=== PATIENT | female | born 1940 | race Caucasian/White ===

== ENCOUNTER → 2017-10-29 11:17 | Outpatient (CLI) | payer MEDICARE, SELFPAY ==
[2017-10-29 13:04] LABS: Alanine Aminotransferase 45 IU/L (9-52); Aspartate Aminotransferase 54 IU/L (14-36); Cholesterol 229 mg/dL (140-199); HDL Cholesterol 70 mg/dL (40-60); LDL Cholesterol Calculated 122 mg/dL (<100); Triglycerides 185 mg/dL (35-150)
== END ==
PROVIDERS: Family Provider Internal Medicine; PCP Internal Medicine; Visit Provider Internal Medicine
DX: E78.2 Mixed hyperlipidemia (principal)
CPT/HCPCS: 36415; 80061; 84450; 84460

== ENCOUNTER → 2018-03-17 09:45 | Outpatient (CLI) | payer MEDICARE, SELFPAY ==
[2018-03-17 11:28] LABS: Alanine Aminotransferase 33 IU/L (9-52); Albumin 4.6 g/dL (3.5-5.0); Albumin Globulin Ratio 1.7 (1.0-2.8); Alkaline Phosphatase 75 U/L (38-126); Aspartate Aminotransferase 37 IU/L (14-36); Bilirubin Total 0.8 mg/dL (0.2-1.3); Bilirubin Unconjugated 0.5 mg/dL (0.0-1.1); Cholesterol 235 mg/dL (140-199); Globulin 2.7 g/dL (1.7-4.1); HDL Cholesterol 62 mg/dL (40-60); HEMOLYSIS < 15 (0-50); LDL Cholesterol Calculated 119 mg/dL (<100); Total Protein 7.3 g/dL (6.3-8.2); Triglycerides 270 mg/dL (35-150)
== END ==
PROVIDERS: PCP Internal Medicine; Visit Provider Internal Medicine
DX: K75.81 Nonalcoholic steatohepatitis (NASH) (principal); E78.2 Mixed hyperlipidemia
CPT/HCPCS: 36415; 80061; 80076

== ENCOUNTER → 2018-07-04 11:53 | Outpatient (CLI) | payer MEDICARE, SELFPAY ==
--- NOTE | 2018-07-04 | DI.MG.S_ITS ---
BILATERAL DIGITAL SCREENING MAMMOGRAM 3D/2D WITH CAD: 07/04/2018 CLINICAL: Routine screening. Family history of breast cancer. Comparison is made to exams dated: 07/01/2017 mammogram, 06/14/2016 mammogram, and 06/09/2015 mammogram - [facility]. The tissue of both breasts is heterogeneously dense. This may lower the sensitivity of mammography. Current study was also evaluated with a Computer Aided Detection (CAD) system. No significant masses, calcifications, or other findings are seen in either breast. There has been no significant interval change. IMPRESSION: NEGATIVE There is no mammographic evidence of malignancy. A 1 year screening mammogram is recommended. This exam was interpreted at Station ID: [id number]. NOTE: For mammograms, a report in lay terms will be sent to the patient. Approximately 15% of breast malignancies will not be visualized mammographically. In the management of a palpable breast mass, a negative mammogram must not discourage biopsy of a clinically suspicious lesion. Electronically Signed By: Ishmael sosa/venkat:07/04/2018 16:07:36 letter sent: Normal Exam ACR BI-RADS Category 1: Negative [id number]
== END ==
PROVIDERS: Family Provider Internal Medicine; PCP Internal Medicine; Visit Provider Internal Medicine
DX: Z12.31 Encounter for screening mammogram for malignant neoplasm of breast (principal); Z80.3 Family history of malignant neoplasm of breast
CPT/HCPCS: 77063; 77067

== ENCOUNTER → 2018-08-06 12:55 | Outpatient (CLI) | payer MEDICARE, SELFPAY ==
--- NOTE | 2018-08-06 12:58 | DI.RAD.S_ITS ---
PROCEDURE: XR HIP W PEL IF DONE LT 2V INDICATIONS: hip pain after fall TECHNIQUE: AP pelvis with lateral view(s) of the left hip(s). COMPARISON: None. FINDINGS: Bones: Symmetric appearing moderate bilateral hip joint osteoarthritis is seen. No fractures or dislocations. No evidence of avascular necrosis. Pelvic ring appears intact. No suspicious bony lesions. Soft tissues: The visualized bowel gas pattern is normal. No suspicious soft tissue calcifications. IMPRESSION: Symmetric appearing moderate bilateral hip joint osteoarthritis. Dictated by: Steven Joyce M.D. on 08/06/2018 at 13:27 Approved by: Steven Joyce M.D. on 08/06/2018 at 13:27
== END ==
PROVIDERS: Family Provider Internal Medicine; PCP Internal Medicine; Visit Provider Physician Assistant
DX: M25.552 Pain in left hip (principal); M16.0 Bilateral primary osteoarthritis of hip
CPT/HCPCS: 73502

== ENCOUNTER 2018-09-02 17:52 | Emergency (ER) | payer MEDICARE, SELFPAY ==
[2018-09-02 17:56] VITALS: BP 180/92; PULSE 84; RESP 16; TEMP 37.2; O2SAT 97
--- NOTE | 2018-09-02 19:55 | DI.US.S_ITS ---
PROCEDURE: US PERIPH VENOUS LOW EXTREM LT INDICATIONS: EDEMA, PAIN TECHNIQUE: Real-time imaging, as well as color and pulse Doppler interrogation, were performed of the lower extremity deep veins from the inguinal ligament to the popliteal fossa. COMPARISON: None. FINDINGS: The common femoral, femoral and popliteal veins are normally compressible, and free of intraluminal thrombus. Color and pulse Doppler demonstrate normal phasic intraluminal flow. There is normal augmentation response to distal compression maneuver. IMPRESSION: No visualized deep venous thrombosis. Dictated by: Mandy Ortega M.D. on 09/02/2018 at 20:47 Approved by: Mandy Ortega M.D. on 09/02/2018 at 20:47
[2018-09-02 20:00] VITALS: PULSE 78
--- NOTE | 2018-09-02 20:00 | PC.NURSE ---
Long discussion w/ Thania and her . They live on [facility] and [place] not [place] the [place] ferry. They are wondering if they should stay for evaluation or go home. Discussed potential needs to complete evaluation (consulted w/ Dr. Jensen) which include Labs, US, and Provider eval. Their concern is they do not have her night time medications which are substantial & pharmacies will be closed when they leave ED. Discussed w/ Dr. Jensen. He is willing to prescribe medications x 1 dose to be given when she leaves ED. Spoke w/ Selena in pharmacy. She is aware and will dispense. and PT are agreeable to plan.
[2018-09-02 20:11] LABS: Add Manual Diff / Slide Review NO; Basophils Absolute Auto 0 /uL (0-100); Basophils Percent Auto 0.7 % (0-2); Eosinophils Absolute Auto 100 /uL (0-450); Eosinophils Percent Auto 2.1 % (2-4); Hematocrit 41.4 % (36-46); Hemoglobin 13.6 g/dL (12.0-16.0); Lymphocytes Absolute Auto 1300 /uL (1100-4500); Lymphocytes Percent Auto 24.8 % (25-40); Mean Corpuscular HGB Conc 32.9 % (30-36); Mean Corpuscular Hemoglobin 31.4 PG (26-34); Mean Corpuscular Volume 95.2 fL (80-100); Monocytes Absolute Auto 400 /uL (0-900); Monocytes Percent Auto 8.1 % (3-14); Neutrophils Absolute Auto 3400 /uL (1500-7000); Neutrophils Percent Auto 64.3 % (50-75); Platelet Count 177 X10^3/uL (150-400); Red Blood Cell Count 4.35 X10^6/uL (4.0-5.2); Red Cell Distribution Width 13.5 % (11.6-14.8); White Blood Cell Count 5.3 X10^3/uL (4.5-11.0)
[2018-09-02 20:28] LABS: Alanine Aminotransferase 30 IU/L (9-52); Albumin 4.4 g/dL (3.5-5.0); Albumin Globulin Ratio 1.5 (1.0-2.8); Alkaline Phosphatase 75 U/L (38-126); Aspartate Aminotransferase 28 IU/L (14-36); BUN Creatinine Ratio 18.8 (6-22); Bilirubin Total 0.3 mg/dL (0.2-1.3); Blood Urea Nitrogen 15 mg/dL (7-17); C-Reactive Protein Quant 0.7 mg/dL (<1.0); Calcium 9.2 mg/dL (8.4-10.2); Carbon Dioxide 25 mmol/L (22-32); Chloride 103 mmol/L (98-107); Estimated Glomerular Filt Rate > 60.0 mL/min (>60); Glucose 104 mg/dL (80-110); HEMOLYSIS < 15 (0-50); Potassium 4.1 mmol/L (3.4-5.1); Sodium 139 mmol/L (137-145); Total Protein 7.4 g/dL (6.3-8.2)
[2018-09-02 20:33] LABS: Erythrocyte Sedimentation Rate 15 MM/HR (0-20)
[2018-09-02] MEDS: LORazepam 0.5 MG TABLET 1 MG PO (20:54)
--- NOTE | 2018-09-02 20:57 | ED_ITS ---
HPI - Extremity Problem General Chief complaint: Extremity Problem,Nontraumatic Stated complaint: HEMATOMA , LEFT LOWER LEG Time Seen by Provider: 09/02/18 18:45 Source: patient and family Mode of arrival: ambulatory Limitations: no limitations History of Present Illness HPI Narrative: 77-year-old female nonsmoker with history of anxiety, hyperlipidemia presents with a painful hematoma on her left lower extremity. She suffered a mechanical fall about 10 days ago, which she attributes to ongoing arthritic hip pain. [place] forward [place] She developed a golf ball sized hematoma which is very slowly improving. She had been doing okay until she decided to mow the lawn on Saturday and in the day or 2 afterwards she developed swelling distal to the hematoma. She now has some yellowish purple swelling on the dorsum of her foot. She denies any redness, warmth or pain. She has had no systemic findings such as fever, chills nor nausea or vomiting. MD Complaint: extremity pain and extremity swelling Onset (ago): day(s) Pain Consistency: constant Location: left Quality: aching Radiation: none Relieving factors: rest Exacerbating factors: nothing Associated symptoms: denies other symptoms Related Data Home Medications Medication Instructions Recorded Confirmed paroxetine HCl [Paxil] 5 mg PO QDAY #0 06/03/10 09/02/18 quetiapine [Seroquel] 50 mg PO BID #0 04/14/16 09/02/18 [GNP ATHLETES FOOT CR] TOPICAL BIDP PRN #0 08/15/17 08/06/18 clotrimazole 1 gm TOPICAL BIDP PRN #0 08/15/17 09/02/18 gabapentin 300 mg PO DAILY #0 08/15/17 09/02/18 gabapentin [Neurontin] 1,200 cap PO BEDTIME #0 08/15/17 09/02/18 multivitamin [Multiple Vitamins] 1 tab PO QDAY #0 08/15/17 09/02/18 atorvastatin 20 mg tablet 20 mg PO BEDTIME 08/06/18 09/02/18 lorazepam 0.5 mg tablet 1 mg PO BEDTIME 08/06/18 09/02/18 omeprazole 20 mg capsule,delayed 20 mg PO DAILY 08/06/18 09/02/18 release gabapentin 200 mg PO DAILY 09/02/18 09/02/18 lorazepam 0.5 mg PO QD-BID PRN 09/02/18 09/02/18 mirtazapine 30 mg BEDTIME 09/02/18 09/02/18 zolpidem [Ambien] 10 mg PO BEDTIME 09/02/18 09/02/18 Allergies Allergy/AdvReac Type Severity Reaction Status Date / Time Sulfa (Sulfonamide Allergy Unknown Verified 08/06/18 11:41 Antibiotics) [SULFA (SULFONAMIDE ANTIBIOTICS)] Review of Systems Constitutional Denies chills, Denies fever(s), Denies lethargy and Denies weakness Eyes Denies change in vision, Denies eye discharge, Denies irritation and Denies loss of vision ENT Ears, Nose, Mouth, and Throat: Denies change in voice, Denies neck pain and Denies sore throat Cardiovascular Denies chest pain, Denies irregular heart rhythm, Denies lightheadedness, Denies palpitations, Denies dyspnea, Denies dyspnea on exertion and Denies orthopnea Respiratory Denies cough, Denies dyspnea, Denies dyspnea on exertion and Denies wheezing Gastrointestinal Gastrointestinal: Denies abdominal pain, Denies change in bowel habits, Denies diarrhea, Denies nausea and Denies vomiting Genitourinary Denies hematuria, Denies flank pain, Denies urinary incontinence and Denies urinary urgency Musculoskeletal Reports limited range of motion and Denies neck pain Integumentary/Breasts Denies pruritus, Denies erythema, Denies rash, Reports skin pain, Reports skin swelling, Reports unusual bruising and Denies wounds Neurologic Denies confusion, Denies loss of vision and Denies weakness Psychiatric Denies anxiety, Denies confusion, Denies depression, Denies homicidal ideation and Denies suicidal ideation Endocrine Denies palpitations Hematologic/Lymphatic Denies easy bruising Allergic/Immunologic Denies wheezing PFSH Medical History Insomnia (Acute) Surgical History Status post exploratory laparotomy Social History Smoking Status: Never smoker Social History Smoking Status: Never smoker Exam Narrative Exam Narrative: GEN: AOx3 and in mild distress EYES: Pupils are equal, round, and reactive to light and accommodation. Extraoccular muscles are intact bilaterally. There is no subconjunctival hemorrhage or exudate. CHEST: Lungs are clear to auscultation bilaterally and free of wheezes, rales, or rhonchi. Heart rate is regular rhythm, there are no murmurs, clicks, rubs, or gallops. There is no chest wall tenderness. ABD: Abdomen is soft and nontender. There is no guarding or rebound. Bowel sounds are normal in all 4 quadrants. There is no mass or organomegaly. EXT: Full painless ROM of all extremities with no loss of sensation or strength. 2cm healing hematoma to anterior LLE. Mild edema with yellowish/purple discoloration of some proximal toes. No erythema, warmth, or tenderness. Cap refill in tact. Sensation intact. SKIN: Warm, pink, and dry. No erythema or rash Initial Vital Signs Initial Vital Signs: Vital Signs Temperature 98.9 F 09/02/18 17:56 Pulse Rate 84 09/02/18 17:56 Respiratory Rate 16 09/02/18 17:56 Blood Pressure 180/92 H 09/02/18 17:56 Pulse Oximetry 97 09/02/18 17:56 Course Orders Ordered: ED Orders 09/02/18 19:55 US periph venous low extrem lt Stat 09/02/18 20:05 CRP [C-Reactive Protein Quant] Stat Complete Blood Count AUTO DIFF Stat Comprehensive Metabolic Panel Stat Erythrocyte Sedimentation Rate Stat Discontinued Medications Gabapentin (Neurontin) 1,200 mg PO BEDTIME JIN Last Admin: 09/02/18 21:00 Dose: 1,200 mg Lorazepam (Ativan) 1 mg PO NOW ONE Stop: 09/02/18 19:58 Last Admin: 09/02/18 20:54 Dose: 1 mg Mirtazapine (Remeron) 30 mg PO BEDTIME JIN Last Admin: 09/02/18 21:46 Dose: 30 mg Quetiapine Fumarate (Seroquel) 50 mg PO NOW ONE Stop: 09/02/18 19:58 Last Admin: 09/02/18 21:00 Dose: 50 mg Zolpidem Tartrate (Ambien) 10 mg PO BEDTIME PRN PRN Reason: Sleep Last Admin: 09/02/18 21:00 Dose: 10 mg Vital Signs - 8 hr 09/02/18 20:00 09/02/18 21:27 Pulse Rate 80 Pulse Rate [Left Dorsalis Pedis] 78 Respiratory Rate 16 Blood Pressure [Right Arm] 159/83 H Pulse Oximetry 97 MDM - Extremity (Nontraumatic) Lab Data Result diagrams: 09/02/18 20:05 09/02/18 20:05 Lab Results 09/02/18 09/02/18 Range/Units 20:05 20:05 WBC 5.3 (4.5-11.0) X10^3/uL RBC 4.35 (4.0-5.2) X10^6/uL Hgb 13.6 (12.0-16.0) g/dL Hct 41.4 (36-46) % MCV 95.2 (80-100) fL MCH 31.4 (26-34) PG MCHC 32.9 (30-36) % RDW 13.5 (11.6-14.8) % Plt Count 177 (150-400) X10^3/uL Neut % (Auto) 64.3 (50-75) % Lymph % (Auto) 24.8 L (25-40) % Labette % (Auto) 8.1 (3-14) % Eos % (Auto) 2.1 (2-4) % Baso % (Auto) 0.7 (0-2) % Neut # (Auto) 3400 (5120-3634) /uL Lymph # (Auto) 1300 (1145-2374) /uL Labette # (Auto) 400 (0-900) /uL Eos # (Auto) 100 (0-450) /uL Baso # (Auto) 0 (0-100) /uL ESR 15 (0-20) MM/HR Sodium 139 (137-145) mmol/L Potassium 4.1 (3.4-5.1) mmol/L Chloride 103 (98-107) mmol/L Carbon Dioxide 25 (22-32) mmol/L BUN 15 (7-17) mg/dL Creatinine 0.80 (0.52-1.04) mg/dL Estimated GFR > 60.0 (>60) mL/min BUN/Creatinine Ratio 18.8 (6-22) Glucose 104 (80-110) mg/dL Calcium 9.2 (8.4-10.2) mg/dL Total Bilirubin 0.3 (0.2-1.3) mg/dL AST 28 (14-36) IU/L ALT 30 (9-52) IU/L Alkaline Phosphatase 75 (38-126) U/L C-Reactive Protein 0.7 (<1.0) mg/dL Total Protein 7.4 (6.3-8.2) g/dL Albumin 4.4 (3.5-5.0) g/dL Globulin 3.0 (1.7-4.1) g/dL Albumin/Globulin Ratio 1.5 (1.0-2.8) Imaging Data Venous US: Radiologist's impression: [address] [address] Ultrasound Report Signed Patient: Thania Baptiste AMR#: [id number] : 3Acct:[id number] Age/Sex: 77 / FDate of Service: 09/02/18 Loc: ED Accession Number: [id number] Procedure: US periph venous low extrem lt Ordering Provider: German Jensen D.O. PROCEDURE: US PERIPH VENOUS LOW EXTREM LT INDICATIONS: EDEMA, PAIN TECHNIQUE: Real-time imaging, as well as color and pulse Doppler interrogation, were performed of the lower extremity deep veins from the inguinal ligament to the popliteal fossa. COMPARISON: None. FINDINGS: The common femoral, femoral and popliteal veins are normally com pressible, and free of intraluminal thrombus. Color and pulse Doppler demonstrate normal phasic intraluminal flow. There is normal augmentation response to distal compression maneuver. IMPRESSION: No visualized deep venous thrombosis. Dictated by: Mandy Ortega M.D. on 09/02/2018 at 20:47 Approved by: Mandy Ortega M.D. on 09/02/2018 at 20:47 [facility] Narrative Medical decision making narrative: Patient has a known healing hematoma from a mechanical fall. She is largely doing well until she apparently over exerted herself and has some increased swelling in the aftermath. She has no redness, warmth or tenderness. She has no systemic findings to suggest infection and normal labs. Discussed with patient and about my low suspicion for infection and that close follow-up is a better choice. They have had their questions answered to their apparent satisfaction. They have been given return precautions and have verbalized their understanding Discharge Plan Departure Patient Disposition: Home Clinical Impression: Hematoma, Edema of lower extremity Discharge Date/Time: 09/02/18 21:53 Interventions: ED Discharge Assessment Last Done: 09/02/18 21:52 Instructions: DI for Hematoma (Bruise), DI for Peripheral Edema, Unilateral Activity Restrictions/Additional Instructions: *You have been diagnosed with [ left lower extremity hematoma and edema ] *What to do: *continue to take medications as directed *Follow up with your primary care provider in 2-3 days, call for an appointment. Let them know you were seen in the Emergency Department and that we ask that you be seen in follow up *Return to ER if you should have any new, worsening or concerning symptoms *avoid overuse, or over exertion. Please elevate your leg when you can. Prescriptions: No Action lorazepam 0.5 mg tablet 1 mg PO BEDTIME RF: 0 omeprazole 20 mg capsule,delayed release(DR/EC) 20 mg PO DAILY RF: 0 atorvastatin 20 mg tablet 20 mg PO BEDTIME RF: 0 paroxetine HCl [Paxil] 10 MG tablet 5 mg PO QDAY Qty: 0 RF: 0 quetiapine [Seroquel] 50 MG tablet 50 mg PO BID Qty: 0 RF: 0 multivitamin [Multiple Vitamins] 1 EACH tablet 1 tab PO QDAY Qty: 0 RF: 0 clotrimazole 1 % cream 1 gm Topical BIDP PRN (Reason: dermatitis) Qty: 0 RF: 0 gabapentin [Neurontin] 300 MG capsule 1,200 cap PO BEDTIME Qty: 0 RF: 0 [GNP ATHLETES FOOT CR] Topical BIDP PRNQty: 0 RF: 0 gabapentin 100 MG capsule 300 mg PO DAILY Qty: 0 RF: 0 lorazepam 0.5 mg Tablet 0.5 mg PO QD-BID PRN (Reason: Anxiety) RF: 0 gabapentin 100 mg Capsule 200 mg PO DAILY RF: 0 zolpidem [Ambien] 10 mg Tablet 10 mg PO BEDTIME RF: 0 mirtazapine 30 mg tablet 30 mg BEDTIME RF: 0 Referrals: Jeison Willams MD [Primary Care Provider] -
[2018-09-02] MEDS: GABAPENTIN 600 MG TABLET 1200 MG PO (21:00)
[2018-09-02] MEDS: QUETIAPINE 25 MG TABLET 50 MG PO (21:00)
[2018-09-02] MEDS: ZOLPIDEM 5 MG TABLET 10 MG PO (21:00)
[2018-09-02 21:27] VITALS: BP 159/83; PULSE 80; RESP 16; O2SAT 97
[2018-09-02] MEDS: MIRTAZAPINE 15 MG TABLET 30 MG PO (21:46)
== END 2018-09-02 21:53 | disposition home or self-care (01) ==
PROVIDERS: Emergency Provider Emergency Medicine; Family Provider Internal Medicine; PCP Internal Medicine
DX: R60.0 Localized edema (principal); S89.92XA Unspecified injury of left lower leg, initial encounter
CPT/HCPCS: 36415; 80053; 85025; 85651; 86140; 93971; 99282; 99284

== ENCOUNTER → 2018-09-22 10:58 | Outpatient (CLI) | payer MEDICARE, SELFPAY ==
[2018-09-22 12:37] LABS: Alanine Aminotransferase 28 IU/L (9-52); Albumin 4.4 g/dL (3.5-5.0); Albumin Globulin Ratio 1.7 (1.0-2.8); Alkaline Phosphatase 77 U/L (38-126); Aspartate Aminotransferase 29 IU/L (14-36); Bilirubin Total 0.6 mg/dL (0.2-1.3); Bilirubin Unconjugated 0.5 mg/dL (0.0-1.1); Globulin 2.6 g/dL (1.7-4.1); HEMOLYSIS < 15 (0-50)
== END ==
PROVIDERS: PCP Internal Medicine; Visit Provider Internal Medicine
DX: K75.81 Nonalcoholic steatohepatitis (NASH) (principal)
CPT/HCPCS: 36415; 80076

== ENCOUNTER 2018-11-03 15:43 | Emergency (ER) | payer OTHER, MEDICARE, SELFPAY ==
[2018-11-03 15:46] VITALS: BP 140/86; PULSE 91; RESP 18; TEMP 36.8; O2SAT 96
--- NOTE | 2018-11-03 16:17 | RT ---
EKG done at [address] Pierre
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
[2018-11-03 18:46] LABS: Add Manual Diff / Slide Review NO; Basophils Absolute Auto 0 /uL (0-100); Basophils Percent Auto 0.6 % (0-2); Eosinophils Absolute Auto 100 /uL (0-450); Eosinophils Percent Auto 1.2 % (2-4); Hematocrit 40.9 % (36-46); Lymphocytes Absolute Auto 1200 /uL (1100-4500); Lymphocytes Percent Auto 23.3 % (25-40); Mean Corpuscular HGB Conc 34.2 % (30-36); Mean Corpuscular Hemoglobin 32.1 PG (26-34); Mean Corpuscular Volume 93.8 fL (80-100); Monocytes Absolute Auto 400 /uL (0-900); Neutrophils Absolute Auto 3500 /uL (1500-7000); Neutrophils Percent Auto 66.9 % (50-75); Platelet Count 146 X10^3/uL (150-400); Red Blood Cell Count 4.36 X10^6/uL (4.0-5.2); Red Cell Distribution Width 13.9 % (11.6-14.8); White Blood Cell Count 5.3 X10^3/uL (4.5-11.0)
[2018-11-03 19:00] LABS: Alanine Aminotransferase 22 IU/L (9-52); Albumin 4.1 g/dL (3.5-5.0); Albumin Globulin Ratio 1.4 (1.0-2.8); Alkaline Phosphatase 77 U/L (38-126); Aspartate Aminotransferase 31 IU/L (14-36); BUN Creatinine Ratio 18.8 (6-22); Bilirubin Total 0.4 mg/dL (0.2-1.3); Blood Urea Nitrogen 15 mg/dL (7-17); Calcium 9.4 mg/dL (8.4-10.2); Carbon Dioxide 29 mmol/L (22-32); Chloride 104 mmol/L (98-107); Creatine Kinase 83 U/L (30-135); Estimated Glomerular Filt Rate > 60.0 mL/min (>60); Glucose 80 mg/dL (80-110); HEMOLYSIS < 15 (0-50); Potassium 4.3 mmol/L (3.4-5.1); Sodium 141 mmol/L (137-145); Total Protein 7.1 g/dL (6.3-8.2)
[2018-11-03 19:12] LABS: Troponin I < 0.012 ng/mL (0.01-0.034)
== END 2018-11-03 19:41 | disposition home or self-care (01) ==
PROVIDERS: Emergency Provider Internal Medicine; PCP Internal Medicine
DX: R55 Syncope and collapse (principal); S41.101A Unspecified open wound of right upper arm, initial encounter; V48.5XXA Car driver injured in noncollision transport accident in traffic accident, initial encounter
CPT/HCPCS: 70450; 80053; 81003; 82550; 84484; 85025; 93005; 99282; 99285

== ENCOUNTER → 2019-01-15 10:51 | Outpatient (CLI) | payer MEDICARE, SELFPAY ==
[2019-01-15 11:34] LABS: Add Manual Diff / Slide Review NO; Basophils Absolute Auto 0 /uL (0-100); Basophils Percent Auto 0.5 % (0-2); Eosinophils Absolute Auto 100 /uL (0-450); Eosinophils Percent Auto 1.6 % (2-4); Hematocrit 42.7 % (36-46); Hemoglobin 14.4 g/dL (12.0-16.0); Lymphocytes Absolute Auto 1200 /uL (1100-4500); Lymphocytes Percent Auto 23.3 % (25-40); Mean Corpuscular HGB Conc 33.8 % (30-36); Mean Corpuscular Hemoglobin 31.9 PG (26-34); Mean Corpuscular Volume 94.4 fL (80-100); Monocytes Absolute Auto 500 /uL (0-900); Monocytes Percent Auto 9.4 % (3-14); Neutrophils Absolute Auto 3300 /uL (1500-7000); Neutrophils Percent Auto 65.2 % (50-75); Platelet Count 149 X10^3/uL (150-400); Red Blood Cell Count 4.52 X10^6/uL (4.0-5.2); Red Cell Distribution Width 13.7 % (11.6-14.8)
[2019-01-15 12:00] LABS: Alanine Aminotransferase 26 IU/L (9-52); Albumin 4.3 g/dL (3.5-5.0); Albumin Globulin Ratio 1.5 (1.0-2.8); Alkaline Phosphatase 100 U/L (38-126); Aspartate Aminotransferase 34 IU/L (14-36); BUN Creatinine Ratio 21.3 (6-22); Bilirubin Total 0.9 mg/dL (0.2-1.3); Blood Urea Nitrogen 17 mg/dL (7-17); Calcium 9.4 mg/dL (8.4-10.2); Carbon Dioxide 30 mmol/L (22-32); Chloride 101 mmol/L (98-107); Cholesterol 237 mg/dL (140-199); Estimated Glomerular Filt Rate > 60.0 mL/min (>60); Globulin 2.9 g/dL (1.7-4.1); Glucose 96 mg/dL (80-110); HDL Cholesterol 72 mg/dL (40-60); HEMOLYSIS < 15 (0-50); LDL Cholesterol Calculated 119 mg/dL (<100); Potassium 4.5 mmol/L (3.4-5.1); Sodium 137 mmol/L (137-145); Total Protein 7.2 g/dL (6.3-8.2); Triglycerides 230 mg/dL (35-150)
== END ==
PROVIDERS: PCP Internal Medicine; Visit Provider Internal Medicine
DX: E78.2 Mixed hyperlipidemia (principal); K75.81 Nonalcoholic steatohepatitis (NASH)
CPT/HCPCS: 36415; 80053; 80061; 85025

== ENCOUNTER 2019-03-04 07:02 | Day surgery (SDC) | payer MEDICARE, SELFPAY ==
--- NOTE | 2019-03-04 | PATH_ITS ---
[facility] Accession Number: [id number] . 01 Material submitted: . PART A: gastrointestinal site - RANDOM GASTRIC BIOPSIES PART B: gastrointestinal site - GASTRIC POLYP PART C: esophagus - ESOPHAGEAL BIOPSIES PART D: colon - ASCENDING POLYP PART E: colon - TRANSVERSE POLYPS X2 PART F: sigmoid colon - SIGMOID POLYP X2 . 02 Diagnosis: A. Stomach, Random Biopsies: Antral and body-type mucosa with no diagnostic abnormality. Negative for Helicobacter organisms by immunohistochemistry. Negative for intestinal metaplasia. Negative for dysplasia and malignancy. . B. Stomach, Polyp, Biopsy: Fundic gland polyp. No evidence of Helicobacter on H/E stain. Negative for intestinal metaplasia. Negatie for dysplasia and malignancy. . C. Esophagus, Biopsies: Squamocolumnar junctional mucosa with mild active inflammation. Negative for intestinal metaplasia. Negative for dysplasia and malignancy. . D. Ascending Colon, Polyp, Biopsy: Tubulovillous adenoma. No evidence of malignancy or high-grade dysplasia. . E. Transverse Colon, Polyps, Biopsies: Tubular adenomas. . F. Sigmoid Colon, Polyps, Biopsies: Tubular adenoma in 1 of 3 fragments. Benign lymphoid aggregate in 1 fragment. [facility] 03/06/2019 1341 Local . 02 Electronically signed: . Elba Ventura MD, Pathologist NPI- [id number] . 01 Gross description: . Part A: RANDOM GASTRIC BIOPSIES: Received in formalin are 4 fragment(s) of reyes, soft tissue measuring 0.1 x 0.1 x 0.1 cm to 0.3 x 0.2 x 0.2 cm which is entirely submitted and submitted entirely in 1 cassette(s). Part B: GASTRIC POLYP: Received in histochoice are 2 fragment(s) of reyes, soft tissue measuring 0.1 x 0.1 x 0.1 cm to 0.3 x 0.2 x 0.2 cm which is entirely submitted and submitted entirely in 1 cassette(s) Part C: ESOPHAGEAL BIOPSIES: Received in formalin are 4 fragment(s) of reyes, soft tissue measuring 0.1 x 0.1 x 0.1 cm to 0.2 x 0.1 x 0.1 cm which is entirely submitted and submitted entirely in 1 cassette(s) Part D: ASCENDING POLYP: Received in formalin are multiple fragment(s) of reyes, soft tissue measuring 0.1 x 0.1 x 0.1 cm to 0.5 x 0.5 x 0.5 cm which is entirely submitted and submitted entirely in 1 cassette(s) Part E: TRANSVERSE POLYPS X2: Received in formalin are 3 fragment(s) of reyes, soft tissue measuring 0.1 x 0.1 x 0.1 cm to 0.2 x 0.1 x 0.1 cm which is entirely submitted and submitted entirely in 1 cassette(s) Part F: SIGMOID POLYP X2: Received in formalin are 2 fragment(s) of reyes, soft tissue measuring 0.2 x 0.2 x 0.2 cm to 0.3 x 0.2 x 0.2 cm which is entirely submitted and submitted entirely in 1 cassette(s) /[facility] 03/04/2019 2153 Local . 02 Microscopic: . . A. An immunohistochemical stain was performed to evaluate for Helicobacter organisms and is negative. The control stain showed appropriate reactivity. . * This test was developed and its performance characteristics determined by [facility]. It has not been cleared or approved by the U.S. Food and Drug Administration. The FDA has determined that such clearance or approval is not necessary. This test is used for clinical purposes. It should not be regarded as investigational or for research. . 02 Pathologist provided ICD-10: D12.2, D12.3, D12.5 . 02 CPT . 092146, 223620, 309908, 222998, 830810, 064171, D36705 Performed at: 01 [facility] [address] [facility], [place], [place] [id number] MD Ishmael Hernández MD Phone: [phone] Performed at: [address] [place] [id number] [place], [place] [id number] MD Elba Ventura MD Phone: [phone]
[2019-03-04 07:58] VITALS: BP 141/80; PULSE 71; RESP 14; TEMP 36.1; O2SAT 97
[2019-03-04 07:59] VITALS: BMI 25.6
--- NOTE | 2019-03-04 08:02 | PM.HP.1 ---
History of Present Illness History of Present Illness Date Patient Seen: 03/04/19 Time Patient Seen: 07:55 Chief complaint: [id number] Narrative: Patient is a 78 year old female who presented for EGD and Colonosocpy. Patient describes symptoms of acid reflux despite PPI therapy. PErsonal history of colon polyps, last colonoscopy 2017 at [facility]. Patient History Medical History Depression with anxiety (Chronic) Hearing loss (Chronic) Hyperlipidemia (Chronic) IBS (irritable bowel syndrome) (Chronic) Insomnia (Chronic) Tinnitus (Chronic) Surgical History Status post exploratory laparotomy Social History Smoking Status: Never smoker Family & Social History Tobacco & Substance use: Smoking Status Never smoker Meds Home Medications and Allergies Home Medications Medication Instructions Recorded Confirmed Type paroxetine HCl [Paxil] 5 mg PO QDAY #0 06/03/10 09/02/18 History quetiapine [Seroquel] 50 mg PO BID #0 04/14/16 09/02/18 History [GNP ATHLETES FOOT CR] TOPICAL BIDP PRN #0 08/15/17 08/06/18 History clotrimazole 1 gm TOPICAL BIDP PRN #0 08/15/17 09/02/18 History gabapentin 300 mg PO DAILY #0 08/15/17 09/02/18 History gabapentin [Neurontin] 1,200 cap PO BEDTIME #0 08/15/17 09/02/18 History multivitamin [Multiple Vitamins] 1 tab PO QDAY #0 08/15/17 09/02/18 History atorvastatin 20 mg tablet 20 mg PO BEDTIME 08/06/18 09/02/18 History lorazepam 0.5 mg tablet 1 mg PO BEDTIME 08/06/18 09/02/18 History omeprazole 20 mg capsule,delayed 20 mg PO DAILY 08/06/18 09/02/18 History release gabapentin 200 mg PO DAILY 09/02/18 09/02/18 History lorazepam 0.5 mg PO QD-BID PRN 09/02/18 09/02/18 History mirtazapine 30 mg BEDTIME 09/02/18 09/02/18 History zolpidem [Ambien] 10 mg PO BEDTIME 09/02/18 09/02/18 History Allergies Allergy/AdvReac Type Severity Reaction Status Date / Time Sulfa (Sulfonamide Allergy Unknown Verified 08/06/18 11:41 Antibiotics) [SULFA (SULFONAMIDE ANTIBIOTICS)] Review of Systems Review of Systems ROS Unobtainable: All systems reviewed & are unremarkable except as noted in HPI and below Exam Vital Signs (past 8 hours): - 03/04/19 07:58 Temperature 97.0 F L Pulse Rate 71 Respiratory Rate 14 Blood Pressure 141/80 H Pulse Oximetry 97 Oxygen Delivery Method Room Air Const General: cooperative, healthy appearing, comfortable, well developed and well groomed Nutritional Appearance: average body habitus Orientation: alert, awake and oriented x3 HENMT Head: normal to inspection, normocephalic and atraumatic Nose: external nose normal Mouth: oral mucosae normal Resp Effort & Inspection: normal respiratory effort and able to speak in complete sentences Auscultation: clear to auscultation bilaterally Cardio Rate: regular rate Rhythm: regular rhythm Heart Sounds: S1 normal and S2 normal GI Palpation: soft Auscultation: normal bowel sounds Assessment & Plan Assessment & Plan narrative: 1. GERD 2. History of colon polyps EGD and Colonoscopy today
[2019-03-04] MEDS: SODIUM CHLORIDE 0.9% 1,000 ML 70 ML IV (08:05)
--- NOTE | 2019-03-04 09:17 | PM.OP.ENDO ---
Operative Date/Time/Diagnoses Date of procedure: 03/04/19 Time of procedure: 08:30 Pre-op diagnosis: GERD History of polyps Procedure Notes Procedure in detail: Surgeon: Yancy Cleveland DO Procedure: Esophagogastroduodenoscopy with biopsies and colonoscopy with polypectomy Preoperative diagnosis: 1. GERD 2. History of colon polyps Postoperative diagnosis: 1. LA-A Reflux rule out Barretts 2. Gastritis 3. Gastric polyps 4. Ascending, transverse and sigmoid polyps 5. Diverticulosis 6. Internal hemorrhoids Medications: Conscious sedation using 8 mg IV of Midazolam and 175 mcg IV of Fentanyl (total for both procedures) Preanesthesia Assessment An H and P was performed/updated and the Px?s ASA class is 2. The procedure was discussed in detail with the patient. The potential risks and complications including infection, bleeding, missed lesions, perforation, need for surgery in case of perforation, prolonged hospital stay, and were explained. A brief question and answer period was allotted and once all questions were answered, informed consent was obtained. The patient was brought back to the procedure room and placed on standard monitoring. The patient?s vital signs were monitored continuously throughout the entire procedure. Prior to starting, a timeout was performed to confirm the patient?s identity, allergies, medications, and procedure. Procedure in detail The patient was placed in left lateral decubitus position and a bite block was inserted. The tip of the upper endoscope was placed into the mouth and advanced without difficulty under direct visualization into the esophagus. Esophagus: LA-A esophagitis at the GE junction -biopsies were taken to rule out Moses's esophagus Stomach: Mild gastritis biopsies were taken to rule out H pylori in the body and antrum Multiple small gastric polyps -biopsied Normal appearing stomach on retroflexion Duodenum: Normal appearing small bowel After the upper endoscopy, preparations were made for the colonoscopy. Once adequate sedation was obtained a TOMÁS was performed. The digital rectal examination did not reveal any palpable lesions. The tip of the colonoscope was placed in the anal canal and advanced with mild difficulty due to redundant colon, manual pressure was applied all the way to the cecum which was identified by the appendiceal orifice and the ileocecal valve. Colonoscopy prep was good. Polyp was removed from the ascending colon with hot snare measuring 1 cm. 2 small polyps removed from the transverse colon forceps measuring 2-3 mm in size. Two polyps were noted in the sigmoid colon removed with forceps measuring 2-3 mm in size. Diverticulosis was noted in the sigmoid colon. Internal hemorrhoids mild grade 1 were noted on retroflexion. The patient tolerated the procedure well and will be brought back to the recovery area to be discharged once criteria are met. The prep was judged to be good/excellent and adequate to identify polyps less than 5 mm. The withdrawal time was 18min. The total physician intraservice time was 28min. Complications There were no complications and estimated blood loss was minimal. Recommendations Resume previous diet -recommend high-fiber diet Continue outpatient medications Follow-up pathology results Repeat colonoscopy after pathology results are reviewed Follow-up at our office if persistent symptoms An emergency contact number was given to the patient for any complications related to the procedure Scope withdrawal time: 18min Sedation minutes: 28
[2019-03-04] MEDS: fentaNYL 250 MCG/5 ML INJ IV (09:21)
[2019-03-04 09:22] VITALS: BP 124/68; PULSE 86; RESP 17; TEMP 36; O2SAT 98
[2019-03-04] MEDS: MIDAZOLAM 5 MG/5 ML VIAL IV (09:22)
[2019-03-04 09:27] VITALS: BP 142/74; PULSE 73; RESP 13; O2SAT 100
--- NOTE | 2019-03-04 09:29 | SUR.PHASEI ---
Patient arrived A/O x 4. DIXON's x 4, Denies pain/nausea. Tolerating ice chips.
[2019-03-04 09:32] VITALS: BP 143/77; PULSE 73; RESP 16; TEMP 35.9; O2SAT 100
[2019-03-04 09:38] VITALS: BP 145/71; PULSE 72; RESP 15; O2SAT 100
== END 2019-03-04 09:38 | disposition home or self-care (01) ==
PROVIDERS: PCP Internal Medicine; Visit Provider Student in an Organized Health Care Education/Training Program
PROC: 0DJ08ZZ Inspection of Upper Intestinal Tract, Via Natural or Artificial Opening Endoscopic (ICD-10-PCS; CPT 43235; principal; 2019-03-04 08:30)
PROC: 0DJD8ZZ Inspection of Lower Intestinal Tract, Via Natural or Artificial Opening Endoscopic (ICD-10-PCS; CPT 45378; 2019-03-04 08:30)
DX: Z86.010 Personal history of colon polyps (principal); K21.9 Gastro-esophageal reflux disease without esophagitis; K57.30 Diverticulosis of large intestine without perforation or abscess without bleeding; K29.70 Gastritis, unspecified, without bleeding; K64.0 First degree hemorrhoids; D12.2 Benign neoplasm of ascending colon; D12.3 Benign neoplasm of transverse colon; D12.5 Benign neoplasm of sigmoid colon
CPT/HCPCS: 45380; 45385; 43239; 88305; 88342; J2250; J3010

== ENCOUNTER 2019-03-06 10:40 | Emergency (ER) | payer MEDICARE, SELFPAY ==
[2019-03-06 11:00] VITALS: BP 143/63; PULSE 93; RESP 16; TEMP 37; O2SAT 93
[2019-03-06] MEDS: BACITRACIN OINT 0.9 GM PCKT 1 APPLIC TOP (11:24)
[2019-03-06] MEDS: LIDO 1%/SOD BICARB 8.4% (10ML) 10 ML SYRINGE INJ (11:25)
--- NOTE | 2019-03-06 11:29 | ED_ITS ---
HPI - Fall <ROBY Zurita - Last Filed: 03/06/19 14:58> General Chief Complaint: Fall Stated Complaint: Hit right side of back of head today Time Seen by Provider: 03/06/19 11:04 Source: patient Mode of arrival: Ambulatory Limitations: no limitations History of Present Illness HPI Narrative: This is a pleasant 78 year female, nonsmoker, who presents with spouse with chief complain of laceration on her right side head after she fell at 8:00 a.m. today. Patient reports she was rearranging her table and vegetable packer sleep off the table and while she was falling she might of fell on the post near by. She denies loss of consciousness, vision change, weakness to extremities, nausea or vomiting, on anticoagulant/antiplatelets. The patient and her is on the way to [place] today the and the wedding. Related Data Home Medications Medication Instructions Recorded Confirmed paroxetine HCl [Paxil] 5 mg PO QDAY #0 06/03/10 03/06/19 quetiapine [Seroquel] 50 - 100 mg PO BEDTIME #0 04/14/16 09/02/18 clotrimazole 1 gm TOPICAL BIDP PRN #0 08/15/17 03/06/19 atorvastatin 20 mg tablet 20 mg PO BEDTIME 08/06/18 03/06/19 omeprazole 20 mg capsule,delayed 20 mg PO BID 08/06/18 03/06/19 release mirtazapine 30 mg BEDTIME 09/02/18 03/06/19 zolpidem [Ambien] 10 mg PO BEDTIME PRN 09/02/18 03/06/19 gabapentin 1,200 mg PO BEDTIME 03/06/19 03/06/19 gabapentin 900 mg PO 0000 03/06/19 03/06/19 lorazepam 0.5 mg PO BID PRN 03/06/19 03/06/19 psotqnou-apd-VD-lycopen-lutein 1 tab PO DAILY 03/06/19 03/06/19 [Centrum Silver] Allergies Allergy/AdvReac Type Severity Reaction Status Date / Time Sulfa (Sulfonamide AdvReac Mild Shakey Verified 03/04/19 08:13 Antibiotics) [SULFA (SULFONAMIDE ANTIBIOTICS)] Review of Systems <ROBY Zurita - Last Filed: 03/06/19 14:58> Review of Systems Narrative: General: Denies fever, chills, fatigue, malaise, sweats. HEENT: Denies sinus pain, ear pain, sore throat, difficulty swallowing, dizziness. Respiratory: Denies dyspnea, cough, wheezing, hemoptysis, sputum. Cardiovascular: Denies chest pain, palpitations, orthopnea, edema. Gastrointestinal: Denies nausea, vomiting, abdominal pain, diarrhea, constipation, melena. : Denies dysuria, frequency, incontinence, hematuria, urinary retention. Musculoskeletal: Denies weakness, joint pain or bony pain. Skin: See HPI Neurologic: Denies weakness, headache, numbness, change in speech, confusion, seizures, incoordination. Psychiatric: No concerning psychosocial issues. 12-point review of systems is negative except for those stated above. Exam <Oscar Jeremy ROBY - Last Filed: 03/06/19 14:58> Narrative Exam Narrative: General appearance: well developed, well nourished, in no acute distress. Head: normocephalic, atraumatic, laceration, no step-off or crepitus, non- tender. Eye: pupil equal, round. EOMI. Ear: Bilateral ear canal clear without hemotympanum or clear drainage. Nose: nares patent. Oral: mucosa moist. Neck/Thyroid: neck supple, full range of motion, no visible masses. Skin: deep laceration on R parietal 4 cm. no suspicious rashes, lesions over other visible areas. Warm and dry. Heart: no clubbing, no cyanosis, no edema. Lungs: Breathing even and unlabored. No stridor. No accessory muscles used. Chest: normal shape and expansion. Abdomen: non-obese, non-distended. Neurologic: alert and oriented. 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 Psych: good eye contact, normal affect. Initial Vital Signs Initial Vital Signs: Vital Signs Temperature 98.6 F 03/06/19 11:00 Pulse Rate 93 H 03/06/19 11:00 Respiratory Rate 16 03/06/19 11:00 Blood Pressure 143/63 H 03/06/19 11:00 Pulse Oximetry 93 03/06/19 11:00 <Marie Cervantes DO - Last Filed: 03/07/19 08:19> Initial Vital Signs Initial Vital Signs: Vital Signs Temperature 98.6 F 03/06/19 11:00 Pulse Rate 93 H 03/06/19 11:00 Respiratory Rate 16 03/06/19 11:00 Blood Pressure 143/63 H 03/06/19 11:00 Pulse Oximetry 93 03/06/19 11:00 PFSH <ROBY Zurita - Last Filed: 03/06/19 14:58> Medical History Arthritis (Acute) Constipation (Acute) Depression with anxiety (Chronic) Gastric reflux (Acute) Hearing loss (Chronic) Hyperlipidemia (Chronic) IBS (irritable bowel syndrome) (Chronic) Insomnia (Chronic) Tinnitus (Chronic) Surgical History History of colonoscopy with polypectomy (Acute) History of esophagogastroduodenoscopy (EGD) (Acute) Status post exploratory laparotomy Social History household members: spouse Smoking Status: Never smoker Social History household members: spouse Smoking Status: Never smoker Procedures <ROBY Zurita - Last Filed: 03/06/19 14:58> Laceration Repair Laceration 1: Site: scalp Side (If applicable): right (parietal ) Size (cm): 4 Description: linear Depth: simple, single layer Local Anesthetic: lidocaine 1% and with bicarb Amount of anesthesia used (mL): 1.5 Skin layer closed with: renuka (6) Course <ROBY Zurita - Last Filed: 03/06/19 14:58> Orders Ordered: Discontinued Medications Bacitracin (Bacitracin) 1 applic TOP NOW ONE Stop: 03/06/19 11:15 Last Admin: 03/06/19 11:24 Dose: 1 applic Documented by: YOVANNY Lidocaine/Sodium Bicarbonate (Buffered Lidocaine 10 Ml Syr) 10 ml INJ NOW ONE Stop: 03/06/19 11:15 Last Admin: 03/06/19 11:25 Dose: 10 ml Documented by: YOVANNY Vital Signs Vital signs: Vital Signs - 8 hr 03/06/19 11:00 03/06/19 12:12 Temperature 98.6 F Pulse Rate 93 H 68 Respiratory Rate 16 16 Blood Pressure 143/63 H 140/68 Pulse Oximetry 93 99 <Marie Cervantes DO - Last Filed: 03/07/19 08:19> Orders Ordered: Discontinued Medications Bacitracin (Bacitracin) 1 applic TOP NOW ONE Stop: 03/06/19 11:15 Last Admin: 03/06/19 11:24 Dose: 1 applic Documented by: YOVANNY Lidocaine/Sodium Bicarbonate (Buffered Lidocaine 10 Ml Syr) 10 ml INJ NOW ONE Stop: 03/06/19 11:15 Last Admin: 03/06/19 11:25 Dose: 10 ml Documented by: YOVANNY Vital Signs Vital signs: Vital Signs - 8 hr 03/06/19 11:00 03/06/19 12:12 Temperature 98.6 F Pulse Rate 93 H 68 Respiratory Rate 16 16 Blood Pressure 143/63 H 140/68 Pulse Oximetry 93 99 MDM - Fall <ROBY Zurita - Last Filed: 03/06/19 14:58> Differential Diagnosis Differential diagnosis: Likely concussion without loss of consciousness and other (Scalp laceration, intracranial hemorrhage) Medical Records Attestation: I reviewed the patient's medical records. Imaging Data CT scan - head: Radiologist's impression: [place] [address] CT Scan Report Signed Patient: Thania Baptiste [facility]#: [id number] : 3Acct:[id number] Age/Sex: 78 / FDate of Service: 03/06/19 Loc: ED Accession Number: [id number] Procedure: CT head/brain wo con Ordering Provider: Oscar Luna PROCEDURE: CT HEAD/BRAIN WO CON INDICATIONS: Hit head TECHNIQUE: Noncontrast 4.5 mm thick angled axial sections acquired from the foramen magnum to the vertex, with coronal and sagittal reformats. For radiation dose reduction, the following was used: automated exposure control, adjustment of mA and/or kV according to patient size. COMPARISON: [facility], MR, BRAIN (IAC) W AND WO CONTRAST, 10/17/2007, 15:14. [facility], CT, CT HEAD/BRAIN WO CON, 11/03/2018, 17:35. FINDINGS: Image quality: Excellent. CSF spaces: Basal cisterns are patent. No extra-axial fluid collections. The ventricles are symmetric in size and shape. Brain: No intracranial bleeds or masses. There is cerebral volume loss for age, with resultant ventricular and sulcal prominence. There are periventricular and deep white matter chronic small vessel ischemic changes. There is intracranial internal carotid artery atherosclerosis. Skull and face: Calvarium and visualized facial bones appear intact, without suspicious lesions. Incidental note is made of hyperostosis frontalis. This is not considered to be pathologic in a woman of this age. Sinuses: Visualized sinuses and mastoids are clear. IMPRESSION: Normal intracranial study, without hemorrhage or displaced calvarial fracture. Note is made of age-appropriate brain parenchymal volume loss and chronic small vessel ischemic changes. Dictated by: Jefe Staley M.D. on 03/06/2019 at 10:44 Approved by: Jefe Staley M.D. on 03/06/2019 at 10:45 [facility] Narrative Medical decision making narrative: This is pleasant 78-year-old female who had taken a fall this morning and injured her right-sided parietal lobe with laceration. No focal neurological deficit has appreciated during physical exam. Patient is not on anticoagulants. Patient denies loss of consciousness, mid cervical tenderness, nausea vomiting, visual changes, severe headache, or extremity weakness. CT scan today shows no acute findings such as cerebral hemorrhage or skull fractures. Laceration has been repaired with renuka. Please see procedural note. Return precautions were discussed with the patient and patient advised laceration removal in 7 days. Agrees with treatment plan, verbalized understanding and no further questions at this time. Discharge Plan Departure Patient Disposition: Home Clinical Impression: Tinnitus Laceration of scalp Qualifiers: Encounter type: initial encounter Qualified Code(s): S01.01XA - Laceration without foreign body of scalp, initial encounter Fall Qualifiers: Encounter type: initial encounter Qualified Code(s): W19.XXXA - Unspecified fall, initial encounter Discharge Date/Time: 03/06/19 12:13 Instructions: DI for Laceration Repair -- Geraldine, DI for Closed Head Injury Activity Restrictions/Additional Instructions: You have been diagnosed with [scalp laceration. Head CT shows no acute findings such as hemorrhage or fracture]. What to do: *Take your medications as directed. You can take [id number] Tylenol and or Motrin as needed for discomfort. Also, you can use ice pack on affected site for discomfort Please do not get your wound soaked in the water until stable removal. You can wash the wound with soap and water after 24 hours. Pat dry with clean paper towel and apply antibiotic ointment. Please monitor for signs and symptoms for infection such as increasing redness, swelling, warmth, pain, fever, purulent discharge. If this occurs, please return to ED or follow up with your primary care physician since your wound may be gotten infected. Please follow up with your primary care provider in 2-3 days for recheck wound. Your renuka should be removed [7 ] days. This can be done by your primary provider, walk-in clinic or here in ED. Please keep your wound clean, dry and intact all times. *Return to ED if you have any new, worsening, or concerning symptoms, such as [increasing headache, warmth, swelling, purulent discharge, nausea or vomiting, fever, or any acute concerns]. Prescriptions: No Action omeprazole 20 mg capsule,delayed release(DR/EC) 20 mg PO BID RF: 0 atorvastatin 20 mg tablet 20 mg PO BEDTIME RF: 0 paroxetine HCl [Paxil] 10 MG tablet 5 mg PO QDAY Qty: 0 RF: 0 quetiapine [Seroquel] 50 MG tablet 50 - 100 mg PO BEDTIME Qty: 0 RF: 0 clotrimazole 1 % cream 1 gm Topical BIDP PRN (Reason: dermatitis) Qty: 0 RF: 0 zolpidem [Ambien] 10 mg Tablet 10 mg PO BEDTIME PRN (Reason: Insomnia) RF: 0 mirtazapine 30 mg tablet 30 mg BEDTIME RF: 0 gabapentin 300 mg capsule 900 mg PO 0000 RF: 0 gabapentin 300 mg capsule 1,200 mg PO BEDTIME RF: 0 lorazepam 1 mg tablet 0.5 mg PO BID PRN (Reason: Anxiety) RF: 0 Centrum Silver 0.4-300-250 mg-mcg-mcg Tablet 1 tab PO DAILY RF: 0 Referrals: Jeison Willams MD [Primary Care Provider] -
[2019-03-06 12:12] VITALS: BP 140/68; PULSE 68; RESP 16; O2SAT 99
== END 2019-03-06 12:13 | disposition home or self-care (01) ==
PROVIDERS: Emergency Provider Nurse Practitioner Family; PCP Internal Medicine
DX: S01.01XA Laceration without foreign body of scalp, initial encounter (principal); H93.19 Tinnitus, unspecified ear; W19.XXXA Unspecified fall, initial encounter
CPT/HCPCS: 12002; 70450; 99282; 99284

== ENCOUNTER → 2019-07-16 11:16 | Outpatient (CLI) | payer MEDICARE, SELFPAY ==
--- NOTE | 2019-07-16 11:21 | DI.MG.S_ITS ---
BILATERAL DIGITAL SCREENING MAMMOGRAM 3D/2D WITH CAD: 07/16/2019 CLINICAL: Routine screening. Family history of breast cancer. Comparison is made to exams dated: 07/04/2018 mammogram, 07/01/2017 mammogram, 06/14/2016 mammogram, 06/09/2015 mammogram, 06/07/2014 mammogram, and 05/14/2013 mammogram - [facility]. The tissue of both breasts is heterogeneously dense. This may lower the sensitivity of mammography. Current study was also evaluated with a Computer Aided Detection (CAD) system. There is an oval equal density asymmetry in the right breast anterior depth lateral region seen on the craniocaudal view only. This is more prominent. No other significant masses, calcifications, or other findings are seen in either breast. IMPRESSION: INCOMPLETE: NEEDS ADDITIONAL IMAGING EVALUATION The oval equal density asymmetry in the right breast is indeterminate. Additional views with possible ultrasound are recommended. This exam was interpreted at Station ID: [id number]. NOTE: For mammograms, a report in lay terms will be sent to the patient. Approximately 15% of breast malignancies will not be visualized mammographically. In the management of a palpable breast mass, a negative mammogram must not discourage biopsy of a clinically suspicious lesion. Electronically Signed By: Ranjit Farris M.D. slc/:07/16/2019 19:44:38 letter sent: Additional Imaging Needed ACR BI-RADS Category 0: Incomplete [id number]
== END ==
PROVIDERS: Referring Provider Internal Medicine; Visit Provider Internal Medicine
DX: Z12.31 Encounter for screening mammogram for malignant neoplasm of breast (principal); Z80.3 Family history of malignant neoplasm of breast
CPT/HCPCS: 77063; 77067

== ENCOUNTER → 2019-07-31 08:08 | Outpatient (CLI) | payer MEDICARE, SELFPAY ==
--- NOTE | 2019-07-31 | DI.US.S_ITS ---
ULTRASOUND OF RIGHT BREAST: 07/31/2019 CLINICAL: Abn mammo. Comparison is made to exams dated: 07/31/2019 mammogram, 07/16/2019 mammogram, 07/04/2018 mammogram, 07/01/2017 mammogram, 06/14/2016 mammogram, and 06/09/2015 mammogram - [facility]. Color flow and real-time ultrasound of the right breast were performed. Lopez scale images of the real-time examination were reviewed. There are benign duct ectasia in both breasts in the sub-areolar depth that are incidental findings and correlate with stable mammographic findings. No significant abnormalities were seen sonographically in the right breast. IMPRESSION: BENIGN There is no sonographic evidence of malignancy. There is no abnormality seen in the right breast to correspond with the mammography finding which is consistent with normal fibroglandular tissue. A 1 year screening mammogram is recommended. This exam was interpreted at Station ID: [id number]. Electronically Signed By: Samson Verdugo M.D. at/:07/31/2019 12:31:03 letter sent: Normal Exam Ultrasound BI-RADS: 2 Benign
--- NOTE | 2019-07-31 | DI.MG.S_ITS ---
UNILATERAL RIGHT DIGITAL DIAGNOSTIC MAMMOGRAM 3D/2D WITH ADDITIONAL VIEWS: 07/31/2019 CLINICAL: Additional evaluation requested from prior study. Comparison is made to exams dated: 07/16/2019 mammogram, 07/04/2018 mammogram, and 07/01/2017 mammogram - [facility]. The tissue of right breast is heterogeneously dense. This may lower the sensitivity of mammography. The oval equal density asymmetry in the right breast anterior depth lateral region seen on the craniocaudal view only is no longer seen. This is consistent with summation artifact. No other significant masses or calcifications are seen in the breast. IMPRESSION: INCOMPLETE: NEEDS ADDITIONAL IMAGING EVALUATION The previously described oval asymmetry in the right breast anterior depth lateral aspect disperses with additional views and is consistent with summation artifact. However, an ultrasound is recommended to confirm the no longer equal density asymmetry. This is scheduled to follow immediately after this exam. This exam was interpreted at Station ID: [id number]. NOTE: For mammograms, a report in lay terms will be sent to the patient. Approximately 15% of breast malignancies will not be visualized mammographically. In the management of a palpable breast mass, a negative mammogram must not discourage biopsy of a clinically suspicious lesion. Electronically Signed By: Samson Verdugo M.D. aty/:07/31/2019 10:54:32 ACR BI-RADS Category 0: Incomplete [id number]
== END ==
PROVIDERS: Referring Provider Internal Medicine; Visit Provider Internal Medicine
DX: R92.8 Other abnormal and inconclusive findings on diagnostic imaging of breast (principal); N60.42 Mammary duct ectasia of left breast; N60.41 Mammary duct ectasia of right breast
CPT/HCPCS: 76642; 77065; G0279

== ENCOUNTER → 2019-11-09 10:16 | Outpatient (CLI) | payer MEDICARE, SELFPAY ==
[2019-11-09 11:09] LABS: Add Manual Diff / Slide Review NO; Basophils Absolute Auto 0 /uL (0-100); Basophils Percent Auto 0.5 % (0-2); Eosinophils Absolute Auto 100 /uL (0-450); Eosinophils Percent Auto 2.7 % (2-4); Hematocrit 42.2 % (36-46); Hemoglobin 14.2 g/dL (12.0-16.0); Lymphocytes Absolute Auto 1000 /uL (1100-4500); Lymphocytes Percent Auto 22.1 % (25-40); Mean Corpuscular HGB Conc 33.7 % (30-36); Mean Corpuscular Hemoglobin 31.9 PG (26-34); Mean Corpuscular Volume 94.8 fL (80-100); Monocytes Absolute Auto 400 /uL (0-900); Neutrophils Absolute Auto 3100 /uL (1500-7000); Neutrophils Percent Auto 66.7 % (50-75); Platelet Count 149 X10^3/uL (150-400); Red Blood Cell Count 4.46 X10^6/uL (4.0-5.2); Red Cell Distribution Width 14.2 % (11.6-14.8); White Blood Cell Count 4.7 X10^3/uL (4.5-11.0)
[2019-11-09 11:27] LABS: Alanine Aminotransferase 28 IU/L (<35); Albumin 4.2 g/dL (3.5-5.0); Albumin Globulin Ratio 1.4 (1.0-2.8); Alkaline Phosphatase 73 U/L (38-126); Aspartate Aminotransferase 36 IU/L (14-36); BUN Creatinine Ratio 15.1 (6-22); Bilirubin Total 0.6 mg/dL (0.2-1.3); Blood Urea Nitrogen 14 mg/dL (7-17); Calcium 9.6 mg/dL (8.4-10.2); Carbon Dioxide 31 mmol/L (22-32); Chloride 103 mmol/L (98-107); Estimated Glomerular Filt Rate 58.5 mL/min (>60); Globulin 3.1 g/dL (1.7-4.1); Glucose 101 mg/dL (80-110); HEMOLYSIS < 15 (0-50); Potassium 4.3 mmol/L (3.4-5.1); Sodium 137 mmol/L (137-145); Total Protein 7.3 g/dL (6.3-8.2)
== END ==
PROVIDERS: Referring Provider Internal Medicine; Visit Provider Internal Medicine
DX: F10.239 Alcohol dependence with withdrawal, unspecified (principal); E78.2 Mixed hyperlipidemia; F32.9 Major depressive disorder, single episode, unspecified; K75.81 Nonalcoholic steatohepatitis (NASH)
CPT/HCPCS: 36415; 80053; 84443; 85025

== ENCOUNTER → 2019-11-25 12:43 | Outpatient (CLI) | payer MEDICARE, SELFPAY | PROVIDERS: PCP Internal Medicine; Referring Provider Internal Medicine; Visit Provider Internal Medicine | DX: Z13.820 Encounter for screening for osteoporosis (principal); Z78.0 Asymptomatic menopausal state | CPT/HCPCS: 77080 ==

== ENCOUNTER 2020-01-10 12:41 | Emergency (ER) | payer MEDICARE, SELFPAY ==
[2020-01-10] VITALS (15 sets, daily range): BP systolic 118–154; BP diastolic 59–74; PULSE 69–80; RESP 11–19; TEMP 37.1; O2SAT 90–99; BMI 23.0
--- NOTE | 2020-01-10 12:45 | ED_ITS ---
HPI - Neuro Symptoms/Deficit General Chief Complaint: Neuro Symptoms/Deficit Stated Complaint: Code Stroke Time Seen by Provider: 01/10/20 12:45 Source: EMS Mode of arrival: EMS Limitations: no limitations History of Present Illness HPI Narrative: The patient arrives by EMS with confusion, inability to answer questions. Her called EMS sometime around noon. He reported her last normal at 10:30 a.m. she has struggled verbal responses, she can identify her 1st name. She knows she is at a hospital. She cannot create a cleat identify which Hospital, or date. Her speech is stuttered. She appears to have photophobia, she was not adequately show me her eyes on command. She has no facial droop. She has random motion both upper extremities, she is moving both lower extremities. There is no obvious focal motor deficit. Her as medicated she has a history of mental health issues which are currently under management, but has a tendency toward excessive alcohol use. The patient has a initially denied alcohol use other than a drink with dinner last night. Related Data Home Medications Medication Instructions Recorded Confirmed paroxetine HCl [Paxil] 5 mg PO QDAY #0 06/03/10 01/10/20 quetiapine [Seroquel] 75 mg PO BEDTIME #0 04/14/16 01/10/20 clotrimazole 1 gm TOPICAL BIDP PRN #0 08/15/17 01/10/20 atorvastatin 20 mg tablet 20 mg PO BEDTIME 08/06/18 01/10/20 omeprazole 20 mg capsule,delayed 20 mg PO BID 08/06/18 01/10/20 release mirtazapine 30 mg BEDTIME 09/02/18 01/10/20 zolpidem [Ambien] 10 mg PO BEDTIME PRN 09/02/18 01/10/20 gabapentin 1,800 mg PO BEDTIME 03/06/19 01/10/20 lorazepam 0.5 mg PO BID PRN 03/06/19 01/10/20 zthxbecb-zjd-HX-lycopen-lutein 1 tab PO DAILY 03/06/19 01/10/20 [Centrum Silver] Allergies Allergy/AdvReac Type Severity Reaction Status Date / Time Sulfa (Sulfonamide AdvReac Mild Shakey Verified 03/04/19 08:13 Antibiotics) [SULFA (SULFONAMIDE ANTIBIOTICS)] Review of Systems Constitutional Constitutional: Denies chills, Denies fever(s) and Denies weakness Eyes Eyes: Denies change in vision Cardiovascular Cardiovascular: Denies chest pain and Denies dyspnea Respiratory Respiratory: Denies dyspnea Musculoskeletal Musculoskeletal: Denies numbness Integumentary/Breasts Comments: No rash. Neurologic Neurologic: Reports confusion, Denies numbness and Denies weakness Psychiatric Psychiatric: Reports confusion Patient History Medical History Alcohol abuse (Acute) Arthritis (Acute) Constipation (Acute) Depression with anxiety (Chronic) Gastric reflux (Acute) Hearing loss (Chronic) Hyperlipidemia (Chronic) IBS (irritable bowel syndrome) (Chronic) Insomnia (Chronic) Tinnitus (Chronic) Surgical History History of colonoscopy with polypectomy (Acute) History of esophagogastroduodenoscopy (EGD) (Acute) Status post exploratory laparotomy Social History household members: spouse Smoking Status: Never smoker Smoking Status: Never smoker alcohol intake frequency: a few times a month Substance Use Type: does not use Exam Initial Vital Signs Initial Vital Signs: Vital Signs Temperature 98.7 F 01/10/20 13:04 Pulse Rate 69 01/10/20 13:04 Respiratory Rate 16 01/10/20 13:04 Blood Pressure 134/70 01/10/20 13:04 Pulse Oximetry 97 01/10/20 13:04 Const Limitations: behavioral limitations Other: She has limited verbal response, and motor response. She is confused. [facility] Head: normocephalic and atraumatic Eyes Cornea: corneas normal Pupils: PERRL and pupil size Other: No visual field deficits Neck Neck: No JVD Chest Chest: normal palpation of entire chest wall Resp Effort & Inspection: normal respiratory effort and able to speak in complete sentences Auscultation: clear to auscultation bilaterally, no rales, no rhonchi and no wheezes Cardio Rate: regular rate Rhythm: regular rhythm Heart Sounds: S1 normal, S2 normal, no click, no gallops, no murmurs and no rubs Pulses: normal peripheral pulses GI Inspection: non-distended Palpation: soft, no hepatosplenomegaly and No tender Auscultation: normal bowel sounds Back/Spine/Pelvis Back: normal to inspection Skin General: no rashes or lesions noted, No jaundice and No petechiae Neuro General: patient alert, patient oriented x3, gait normal and no focal motor deficits Gait: other (Starting. Minimal speech.) Motor: muscle tone normal throughout Extrem Other: Discoordinated range of motion intact at the initial patient assessment. Psych Appearance: disheveled Speech and Movement: delayed speech Other: Appears intoxicated Scores NIH Stroke Scale Level of Conciousness: Not alert, but arousable by minor stim to obey, answer or respond Ask month/age: Answers one question correctly, intubated follow commands Open/close eyes, close hand: Performs one task correctly Best gaze horizontal: Normal Visual brown: No visual loss Facial palsy: Normal symetrical movement Left arm drift: No drift for full 10 sec Right arm drift: No drift for full 10 sec Left leg drift: No drift for full 10 sec Right leg drift: No drift for full 10 sec Limb ataxia: Present in two limbs Sensory on face/arms/legs: Normal, no sensory loss Best language: Mild to moderate, slurs some words Dysarthria: Mild to mod,some slurring Extinction or inattention: No abnormality Total NIH Stroke scale score: 7 Course Course Course Narrative: The initial stat noncontrast head CT was read as no acute pr ocess by the radiologist. A CT angio of the brain was obtained, again no obvious evidence of stroke. She was given aspirin. She was improving. The alcohol level became none. She continued to improve. He became obvious that she was significantly intoxicated, prior to discharge she is alert orient, her motor and sensory exam is intact. Prior to discharge says no evidence of stroke. She still does not admit to how much she had to drink, or when. Her has been the case this is an ongoing problem. He has requested local resources, our manager social responsibility assisted bag given a list of facilities that could help manage treatment for the come ability of depression/anxiety and alcoholism. The sugey ent was referred back to her PCM, and perhaps contact her insurance company for input for care. Orders Ordered: ED Orders 01/10/20 12:46 CT Stroke Stat EKG-12 Lead Stat 01/10/20 13:01 CT angio head and neck Stat Complete Blood Count AUTO DIFF Stat Comprehensive Metabolic Panel Stat Ethanol (ETOH) Stat Partial Thromboplastin Time Stat Prothrombin Time INR Stat 01/10/20 13:41 Urinalysis and Microscopic Stat Urine Drug Screen, Rapid Stat Discontinued Medications Aspirin (Aspirin Chew) 324 mg PO NOW ONE Stop: 01/10/20 13:03 Last Admin: 01/10/20 13:26 Dose: 324 mg Documented by: MIRELA Sodium Chloride (Normal Saline 0.9%) 1,000 mls @ 150 mls/hr IV CONT JIN Last Infusion: 01/10/20 14:30 Dose: 0 mls/hr Documented by: Infusion: 01/10/20 13:30 Dose: 999 mls/hr Documented by: Admin: 01/10/20 13:26 Dose: 150 mls/hr Documented by: MIRELA Vital Signs Vital signs: Vital Signs - 8 hr 01/10/20 13:04 01/10/20 13:24 01/10/20 13:25 Temperature 98.7 F Pulse Rate 69 73 75 Respiratory Rate 16 19 Blood Pressure 134/70 127/60 Pulse Oximetry 97 90 L 98 01/10/20 13:30 01/10/20 13:45 01/10/20 14:00 Temperature Pulse Rate 77 73 75 Respiratory Rate 11 L Blood Pressure 135/64 139/68 154/69 H Pulse Oximetry 96 96 99 01/10/20 14:15 01/10/20 14:30 01/10/20 14:45 Temperature Pulse Rate 73 73 78 Respiratory Rate 18 Blood Pressure 143/67 H 128/62 118/62 Pulse Oximetry 99 94 96 01/10/20 15:00 01/10/20 15:15 01/10/20 15:30 Temperature Pulse Rate 79 77 78 Respiratory Rate Blood Pressure 147/70 H 140/65 124/59 L Pulse Oximetry 94 95 95 01/10/20 15:45 01/10/20 16:00 01/10/20 16:15 Temperature Pulse Rate 77 80 79 Respiratory Rate Blood Pressure 150/74 H 137/68 135/65 Pulse Oximetry 98 98 95 MDM - Neuro Symptoms/Deficit Lab Data Result diagrams: 01/10/20 13:01 01/10/20 13:01 Labs: Lab Results 01/10/20 01/10/20 01/10/20 Range/Units 13:01 13:01 13:01 WBC 5.6 (4.5-11.0) X10^3/uL RBC 4.50 (4.0-5.2) X10^6/uL Hgb 14.3 (12.0-16.0) g/dL Hct 42.9 (36-46) % MCV 95.4 (80-100) fL MCH 31.7 (26-34) PG MCHC 33.2 (30-36) % RDW 14.2 (11.6-14.8) % Plt Count 154 (150-400) X10^3/uL Neut % (Auto) 60.2 (50-75) % Lymph % (Auto) 26.8 (25-40) % Caroline % (Auto) 10.4 (3-14) % Eos % (Auto) 1.9 L (2-4) % Baso % (Auto) 0.7 (0-2) % Neut # (Auto) 3300 (6114-9155) /uL Lymph # (Auto) 1500 (5314-5088) /uL Caroline # (Auto) 600 (0-900) /uL Eos # (Auto) 100 (0-450) /uL Baso # (Auto) 0 (0-100) /uL PT 11.1 (10.1-12.7) SECONDS INR 1.0 (0.9-1.3) APTT 29 (26.4-36.2) SECONDS Sodium 140 (137-145) mmol/L Potassium 4.0 (3.4-5.1) mmol/L Chloride 105 (98-107) mmol/L Carbon Dioxide 27 (22-32) mmol/L BUN 16 (7-17) mg/dL Creatinine 0.90 (0.52-1.04) mg/dL Estimated GFR > 60.0 (>60) mL/min BUN/Creatinine Ratio 17.8 (6-22) Glucose 102 (80-110) mg/dL Calcium 9.7 (8.4-10.2) mg/dL Total Bilirubin 0.6 (0.2-1.3) mg/dL AST 43 H (14-36) IU/L ALT 35 H (<35) IU/L Alkaline Phosphatase 78 (38-126) U/L Total Protein 7.0 (6.3-8.2) g/dL Albumin 3.9 (3.5-5.0) g/dL Globulin 3.1 (1.7-4.1) g/dL Albumin/Globulin Ratio 1.3 (1.0-2.8) Urine Color Urine Appearance Urine pH (4.5-8.0) Ur Specific [place] (1.000-1.035) Urine Protein (Negative) Urine Glucose (UA) (Negative) g/dL Urine Ketones (NEGATIVE) Urine Occult Blood (Negative) Urine Nitrate (Negative) Urine Bilirubin (NEGATIVE) Urine Urobilinogen (0.2) E.U./dL Ur Leukocyte Esterase (NEGATIVE) Urine RBC (0-5/HPF) Urine WBC (0-5/HPF) Urine Bacteria (None) Ur Culture Indicated? U Opiates 300ng/mL cut (Negative) Ur Oxycodone Screen (Negative) Urine Methadone Screen (Negative) Ur Barbiturates Screen (Negative) U Tricyclic Antidepress (Negative) Ur Phencyclidine Scrn (Negative) Ur Amphetamines Screen (Negative) U Methamphetamines Scrn (Negative) Ur MDMA Scrn (Ecstasy) (Negative) U Benzodiazepines Scrn (Negative) Urine Cocaine Screen (Negative) U Marijuana (THC) Screen (Negative) Ethyl Alcohol ( - 10) mg/dL 01/10/20 01/10/20 01/10/20 Range/Units 13:01 13:41 13:41 WBC (4.5-11.0) X10^3/uL RBC (4.0-5.2) X10^6/uL Hgb (12.0-16.0) g/dL Hct (36-46) % MCV (80-100) fL MCH (26-34) PG MCHC (30-36) % RDW (11.6-14.8) % Plt Count (150-400) X10^3/uL Neut % (Auto) (50-75) % Lymph % (Auto) (25-40) % Caroline % (Auto) (3-14) % Eos % (Auto) (2-4) % Baso % (Auto) (0-2) % Neut # (Auto) (2884-3434) /uL Lymph # (Auto) (0472-5100) /uL Caroline # (Auto) (0-900) /uL Eos # (Auto) (0-450) /uL Baso # (Auto) (0-100) /uL PT (10.1-12.7) SECONDS INR (0.9-1.3) APTT (26.4-36.2) SECONDS Sodium (137-145) mmol/L Potassium (3.4-5.1) mmol/L Chloride (98-107) mmol/L Carbon Dioxide (22-32) mmol/L BUN (7-17) mg/dL Creatinine (0.52-1.04) mg/dL Estimated GFR (>60) mL/min BUN/Creatinine Ratio (6-22) Glucose (80-110) mg/dL Calcium (8.4-10.2) mg/dL Total Bilirubin (0.2-1.3) mg/dL AST (14-36) IU/L ALT (<35) IU/L Alkaline Phosphatase (38-126) U/L Total Protein (6.3-8.2) g/dL Albumin (3.5-5.0) g/dL Globulin (1.7-4.1) g/dL Albumin/Globulin Ratio (1.0-2.8) Urine Color Yellow Urine Appearance Clear Urine pH 6.0 (4.5-8.0) Ur Specific [place] <=1.005 (1.000-1.035) Urine Protein Negative (Negative) Urine Glucose (UA) Negative (Negative) g/dL Urine Ketones Negative (NEGATIVE) Urine Occult Blood Negative (Negative) Urine Nitrate Negative (Negative) Urine Bilirubin Negative (NEGATIVE) Urine Urobilinogen 0.2 (0.2) E.U./dL Ur Leukocyte Esterase Negative (NEGATIVE) Urine RBC None seen (0-5/HPF) Urine WBC None seen (0-5/HPF) Urine Bacteria None seen (None) Ur Culture Indicated? Cult not indicated U Opiates 300ng/mL cut Negative (Negative) Ur Oxycodone Screen Negative (Negative) Urine Methadone Screen Negative (Negative) Ur Barbiturates Screen Negative (Negative) U Tricyclic Antidepress Negative (Negative) Ur Phencyclidine Scrn Negative (Negative) Ur Amphetamines Screen Negative (Negative) U Methamphetamines Scrn Negative (Negative) Ur MDMA Scrn (Ecstasy) Negative (Negative) U Benzodiazepines Scrn Negative (Negative) Urine Cocaine Screen Negative (Negative) U Marijuana (THC) Screen Negative (Negative) Ethyl Alcohol 321 H ( - 10) mg/dL Point of Care Testing Glucose POC [address] scan - head: Radiologist's Impression: [address] [address] [address] Scan Report Signed Patient: Thania Baptiste AMR#: [id number] : 1940cct:[id number] Age/Sex: 79 / FDate of Service: 01/10/20 Loc: ED Accession Number: [id number] Procedure: CT Stroke Ordering Provider: Loki Lipscomb MD PROCEDURE: CT STROKE INDICATIONS: Acute neurologic deficit, confusion TECHNIQUE: Noncontrast 4.5 mm thick angled axial sections acquired from the foramen magnum to the vertex, with coronal reformats. For radiation dose reduction, the following was used: automated exposure control, adjustment of mA and/or kV according to patient size. COMPARISON: None. FINDINGS: Image quality: Excellent. CSF spaces: Basal cisterns are patent. No extra-axial fluid collections. Ventricles are normal in size and shape. Brain: No midline shift. No intracranial masses or hemorrhage. Lopez-white matter interface is normal. Skull and face: Calvarium and visualized facial bones are intact, without suspicious lesions. Sinuses: Visualized sinuses and mastoids are clear. IMPRESSION: No acute intracranial hemorrhage or CT evidence of acute large territory infarct. Findings were discussed with Dr. Lipscomb at [address] [place] [address] on 01/10/2020. This study fulfills neurological imaging criteria for inclusion or exclusion of acute stroke therapies based on available published neurological imaging guidelines. Dictated by: Charles Fletcher M.D. on 01/10/2020 at 12:59 Approved by: Charles Fletcher M.D. on 01/10/2020 at 13:02 CTA head and neck:: Radiologist's Impression: Thania Baptiste 79 F [address] [address] [address] Scan Report Signed Patient: Thania Baptiste AMR#: [id number] : 3Acct:[id number] Age/Sex: 79 / FDate of Service: 01/10/20 Loc: ED Accession Number: [id number] Procedure: CT angio head and neck Ordering Provider: Loki Lipscomb MD PROCEDURE: CT ANGIO HEAD AND NECK INDICATIONS: Stroke symptoms TECHNIQUE: Pre-contrast 4.5 mm thick sections acquired from the foramen magnum to the vertex. After the administration of intravenous contrast, 1 mm thick sections acquired from the aortic arch through the [place] of [place]. Post-contrast 4.5 mm thick sections then re- acquired from the foramen magnum to the vertex. 3-dimensional max iwhk-xonqnluak-lphtmtdmia (MIP) and/or volume rendering reformats were acquired of the central intracranial vasculature and neck separately. COMPARISON: None. FINDINGS: Image quality: Excellent. HEAD CT ANGIOGRAPHY: Anterior circulation: Intracranial internal carotid arteries are normal in size and flow. The flow within the paired anterior cerebral arteries is normal and symmetric. The flow within the middle cerebral artery M1 segments is normal and symmetric. A small anterior M2 branch arising from the right M1 segment is diminutive compared to the contralateral side. At the bifurcation, right M2 branches are diminutive, although there is one prominent well opacified branch. There are no definite acute vascular occlusions. The anterior communicating artery is seen. No aneurysms are seen. Posterior circulation: Visualized portions of the vertebral arteries demonstr ate normal caliber, and join to form a normal appearing basilar artery. Flow within the posterior cerebral arteries is normal and symmetric. No aneurysms are seen. NECK CT ANGIOGRAPHY: Carotid system: The great vessels demonstrate a conventional anatomy as they arise from the aortic arch. The origins of the common carotid arteries appear patent. The common carotid arteries demonstrate normal caliber and courses. The bifurcation regions are both widely patent. The internal carotid arteries demonstrate normal calibers and courses. Posterior circulation: The origins of the vertebral arteries both appear widely patent. The more superior extracranial portions of both vertebral arteries also demonstrate normal courses and calibers. They join to form a normal appearing basilar ar eduardo. Soft tissues: Visualized neck soft tissues demonstrate no suspicious abnormalities. In the right posterior upper lobe (4/225), there is a 5 mm lung nodule. Ground- glass opacities present throughout the upper lobes with dependent changes along the fissures. Bones: No suspicious bony lesions. Visualized cervical spine appears normally aligned. Severe degenerative changes in the endplates and disc spaces. IMPRESSION: 1. No acute vascular occlusion. 2. There is mildly relatively diminutive size of three of four right MCA M2 branches compared to the contralateral side, possibly spasm versus normal variant. 3. No evidence of hemodynamically significant stenosis in the extracranial carotid or vertebral system. 4. 5 mm right upper lobe lung nodule peer. Routine chest CT after resolution of the patient's acute illness is recommended. Any quantitative measurements of stenosis were performed using NASCET criteria. Dictated by: Jasmin Dillard M.D. on 01/10/2020 at 12:56 Approved by: Jasmin Dillard M.D. on 01/10/2020 at 13:21 ECG Data Attestation: I personally reviewed and interpreted this ECG as follows: (Normal sinus rhythm rate 70 beats per minute. Normal intervals. No ectopy. No acute ST T wave changes.) Discharge Plan Departure Patient Disposition: Home Clinical Impression: Alcohol intoxication Qualifiers: Complication of substance-induced condition: uncomplicated Qualified Code(s): F10.920 - Alcohol use, unspecified with intoxication, uncomplicated Depression Qualifiers: Depression Type: unspecified Qualified Code(s): F32.9 - Major depressive disor ran, single episode, unspecified Discharge Date/Time: 01/10/20 16:33 Instructions: Alcohol Use Disorder Activity Restrictions/Additional Instructions: Continue your current medications. I recommend total avoidance of any alcohol use. Our manager social responsibility has given you a list of local options, contact your insurance company and insurance company to help negotiate the appropriate follow-up. Return here as needed. Prescriptions: No Action omeprazole 20 mg capsule,delayed release(DR/EC) 20 mg PO BID RF: 0 atorvastatin 20 mg tablet 20 mg PO BEDTIME RF: 0 paroxetine HCl [Paxil] 10 MG tablet 5 mg PO QDAY Qty: 0 RF: 0 quetiapine [Seroquel] 50 MG tablet 75 mg PO BEDTIME Qty: 0 RF: 0 clotrimazole 1 % cream 1 gm Topical BIDP PRN (Reason: dermatitis) Qty: 0 RF: 0 zolpidem [Ambien] 10 mg Tablet 10 mg PO BEDTIME PRN (Reason: Insomnia) RF: 0 mirtazapine 30 mg tablet 30 mg BEDTIME RF: 0 gabapentin 300 mg capsule 1,800 mg PO BEDTIME RF: 0 lorazepam 1 mg tablet 0.5 mg PO BID PRN (Reason: Anxiety) RF: 0 Centrum Silver 0.4-300-250 mg-mcg-mcg Tablet 1 tab PO DAILY RF: 0 Referrals: Jeison Willams MD [Primary Care Provider] -
--- NOTE | 2020-01-10 13:01 | DI.CT.S_ITS ---
PROCEDURE: CT ANGIO HEAD AND NECK INDICATIONS: Stroke symptoms TECHNIQUE: Pre-contrast 4.5 mm thick sections acquired from the foramen magnum to the vertex. After the administration of intravenous contrast, 1 mm thick sections acquired from the aortic arch through the [place]. Post-contrast 4.5 mm thick sections then re-acquired from the foramen magnum to the vertex. 3-dimensional cmuglui-fswxuoczm-yzbvkvizvw (MIP) and/or volume rendering reformats were acquired of the central intracranial vasculature and neck separately. COMPARISON: None. FINDINGS: Image quality: Excellent. HEAD CT ANGIOGRAPHY: Anterior circulation: Intracranial internal carotid arteries are normal in size and flow. The flow within the paired anterior cerebral arteries is normal and symmetric. The flow within the middle cerebral artery M1 segments is normal and symmetric. A small anterior M2 branch arising from the right M1 segment is diminutive compared to the contralateral side. At the bifurcation, right M2 branches are diminutive, although there is one prominent well opacified branch. There are no definite acute vascular occlusions. The anterior communicating artery is seen. No aneurysms are seen. Posterior circulation: Visualized portions of the vertebral arteries demonstrate normal caliber, and join to form a normal appearing basilar artery. Flow within the posterior cerebral arteries is normal and symmetric. No aneurysms are seen. NECK CT ANGIOGRAPHY: Carotid system: The great vessels demonstrate a conventional anatomy as they arise from the aortic arch. The origins of the common carotid arteries appear patent. The common carotid arteries demonstrate normal caliber and courses. The bifurcation regions are both widely patent. The internal carotid arteries demonstrate normal calibers and courses. Posterior circulation: The origins of the vertebral arteries both appear widely patent. The more superior extracranial portions of both vertebral arteries also demonstrate normal courses and calibers. They join to form a normal appearing basilar artery. Soft tissues: Visualized neck soft tissues demonstrate no suspicious abnormalities. In the right posterior upper lobe (4/225), there is a 5 mm lung nodule. Ground-glass opacities present throughout the upper lobes with dependent changes along the fissures. Bones: No suspicious bony lesions. Visualized cervical spine appears normally aligned. Severe degenerative changes in the endplates and disc spaces. IMPRESSION: 1. No acute vascular occlusion. 2. There is mildly relatively diminutive size of three of four right MCA M2 branches compared to the contralateral side, possibly spasm versus normal variant. 3. No evidence of hemodynamically significant stenosis in the extracranial carotid or vertebral system. 4. 5 mm right upper lobe lung nodule peer. Routine chest CT after resolution of the patient's acute illness is recommended. Any quantitative measurements of stenosis were performed using NASCET criteria. Dictated by: Jasmin Dillard M.D. on 01/10/2020 at 12:56 Approved by: Jasmin Dillard M.D. on 01/10/2020 at 13:21
[2020-01-10 13:11] LABS: Add Manual Diff / Slide Review NO; Basophils Absolute Auto 0 /uL (0-100); Basophils Percent Auto 0.7 % (0-2); Eosinophils Absolute Auto 100 /uL (0-450); Eosinophils Percent Auto 1.9 % (2-4); Hematocrit 42.9 % (36-46); Hemoglobin 14.3 g/dL (12.0-16.0); Lymphocytes Absolute Auto 1500 /uL (1100-4500); Lymphocytes Percent Auto 26.8 % (25-40); Mean Corpuscular HGB Conc 33.2 % (30-36); Mean Corpuscular Hemoglobin 31.7 PG (26-34); Mean Corpuscular Volume 95.4 fL (80-100); Monocytes Absolute Auto 600 /uL (0-900); Monocytes Percent Auto 10.4 % (3-14); Neutrophils Absolute Auto 3300 /uL (1500-7000); Neutrophils Percent Auto 60.2 % (50-75); Platelet Count 154 X10^3/uL (150-400); Red Cell Distribution Width 14.2 % (11.6-14.8); White Blood Cell Count 5.6 X10^3/uL (4.5-11.0)
[2020-01-10 13:23] LABS: Prothrombin Time 11.1 SECONDS (10.1-12.7)
[2020-01-10 13:25] LABS: PTT Partial Thromboplastin Tim 29 SECONDS (26.4-36.2)
[2020-01-10] MEDS: ASPIRIN 81 MG CHEW TAB 324 MG PO (13:26)
[2020-01-10] MEDS: SODIUM CHLORIDE 0.9% 1,000 ML 150 ML IV (13:26)
[2020-01-10 13:29] LABS: Alanine Aminotransferase 35 IU/L (<35); Albumin 3.9 g/dL (3.5-5.0); Albumin Globulin Ratio 1.3 (1.0-2.8); Alkaline Phosphatase 78 U/L (38-126); Aspartate Aminotransferase 43 IU/L (14-36); BUN Creatinine Ratio 17.8 (6-22); Bilirubin Total 0.6 mg/dL (0.2-1.3); Blood Urea Nitrogen 16 mg/dL (7-17); Calcium 9.7 mg/dL (8.4-10.2); Carbon Dioxide 27 mmol/L (22-32); Chloride 105 mmol/L (98-107); Estimated Glomerular Filt Rate > 60.0 mL/min (>60); Globulin 3.1 g/dL (1.7-4.1); Glucose 102 mg/dL (80-110); HEMOLYSIS 30 (0-50); Sodium 140 mmol/L (137-145)
[2020-01-10 13:39] LABS: Ethanol (ETOH) 321 mg/dL
[2020-01-10 13:45] LABS: Bacteria Urine None Seen; RBC Urine None Seen (0-5/HPF); WBC Urine None Seen (0-5/HPF)
[2020-01-10 13:49] LABS: Appearance Urine UA CLEAR; Bilirubin Urine UA NEGATIVE (NEGATIVE); Color Urine UA YELLOW; Glucose Urine UA NEGATIVE (Negative); Ketones Urine UA NEGATIVE (NEGATIVE); Leukocyte Esterase Urine UA NEGATIVE (NEGATIVE); Nitrite Urine UA NEGATIVE (Negative); Occult Blood Urine UA NEGATIVE (Negative); Protein Urine UA NEGATIVE (Negative); Specific Gravity Urine UA <=1.005 (1.000-1.035); Urobilinogen Urine UA 0.2 E.U./dL (0.2)
[2020-01-10 13:52] LABS: UR Morphine/Opiate cutoff 300 Negative (Negative); Ur Creatinine Normal (Normal); Ur Specific Gravity Normal (Normal); Urine Amphetamines Negative (Negative); Urine Barbiturates Negative (Negative); Urine Benzodiazepines Negative (Negative); Urine Cocaine Negative (Negative); Urine MDMA Negative (Negative); Urine Methadone Negative (Negative); Urine Methamphetamines Negative (Negative); Urine Oxycodone Negative (Negative); Urine Phencyclidine Negative (Negative); Urine Tetrahydrocannabinol Negative (Negative); Urine Tricyclic Antidepressant Negative (Negative); Urine pH Normal (Normal)
[2020-01-10 14:03] LABS: Culture Indicated Urine Cult Not Indicated
--- NOTE | 2020-01-10 15:47 | PC.NURSE ---
steady gait. pt's mentation at baseline per . OOB to commode. asking to be DC'd so he can take her home.
== END 2020-01-10 16:33 | disposition home or self-care (01) ==
PROVIDERS: Emergency Provider Emergency Medicine; PCP Internal Medicine
DX: F10.920 Alcohol use, unspecified with intoxication, uncomplicated (principal); Y90.8 Blood alcohol level of 240 mg/100 ml or more; F32.9 Major depressive disorder, single episode, unspecified; R29.818 Other symptoms and signs involving the nervous system
CPT/HCPCS: 36415; 70450; 70496; 70498; 80053; 80305; 80320; 81001; 82962; 85025; 85610; 85730; 93005; 96360; 99285; 99291; Q9967

== ENCOUNTER → 2020-01-14 11:03 | Outpatient (CLI) | payer MEDICARE, SELFPAY ==
[2020-01-16 14:12] LABS: QuantiFERON Mitogen Value 6.28 IU/mL (.); QuantiFERON TB Gold Plus Negative (Negative); QuantiFERON TB1 Ag Value 0.27 IU/mL (.); QuantiFERON TB2 Ag Value 0.21 IU/mL (.)
== END ==
PROVIDERS: PCP Internal Medicine; Referring Provider Internal Medicine; Visit Provider Internal Medicine
DX: Z11.1 Encounter for screening for respiratory tuberculosis (principal)
CPT/HCPCS: 36415; 86480

== ENCOUNTER → 2020-04-25 19:57 | Outpatient (ROUT) | payer MEDICARE, SELFPAY ==
[2020-04-25 20:20] LABS: Add Manual Diff / Slide Review NO; Basophils Absolute Auto 0 /uL (0-100); Basophils Percent Auto 0.4 % (0-2); Eosinophils Absolute Auto 100 /uL (0-450); Eosinophils Percent Auto 1.7 % (2-4); Hematocrit 42.7 % (36-46); Hemoglobin 14.3 g/dL (12.0-16.0); Lymphocytes Absolute Auto 1300 /uL (1100-4500); Mean Corpuscular HGB Conc 33.6 % (30-36); Mean Corpuscular Hemoglobin 31.6 PG (26-34); Mean Corpuscular Volume 94.3 fL (80-100); Monocytes Absolute Auto 500 /uL (0-900); Monocytes Percent Auto 8.5 % (3-14); Neutrophils Absolute Auto 4400 /uL (1500-7000); Neutrophils Percent Auto 69.4 % (50-75); Platelet Count 197 X10^3/uL (150-400); Red Blood Cell Count 4.53 X10^6/uL (4.0-5.2); Red Cell Distribution Width 13.3 % (11.6-14.8); White Blood Cell Count 6.3 X10^3/uL (4.5-11.0)
[2020-04-25 20:33] LABS: Alanine Aminotransferase 34 IU/L (<35); Albumin 3.9 g/dL (3.5-5.0); Albumin Globulin Ratio 1.4 (1.0-2.8); Alkaline Phosphatase 82 U/L (38-126); Aspartate Aminotransferase 34 IU/L (14-36); BUN Creatinine Ratio 19.5 (6-22); Bilirubin Total 0.5 mg/dL (0.2-1.3); Blood Urea Nitrogen 15 mg/dL (7-17); Calcium 9.3 mg/dL (8.4-10.2); Carbon Dioxide 30 mmol/L (22-32); Chloride 100 mmol/L (98-107); Estimated Glomerular Filt Rate > 60.0 mL/min (>60); Globulin 2.7 g/dL (1.7-4.1); Glucose 70 mg/dL (80-110); HEMOLYSIS < 15 (0-50); Potassium 4.4 mmol/L (3.4-5.1); Sodium 136 mmol/L (137-145); Total Protein 6.6 g/dL (6.3-8.2)
== END ==
PROVIDERS: PCP Internal Medicine; Visit Provider Physician Assistant
DX: R39.9 Unspecified symptoms and signs involving the genitourinary system (principal); R10.84 Generalized abdominal pain; R14.0 Abdominal distension (gaseous); R35.0 Frequency of micturition; N94.89 Other specified conditions associated with female genital organs and menstrual cycle
CPT/HCPCS: 80053; 85025; 86304

== ENCOUNTER → 2020-05-02 10:38 | Outpatient (CLI) | payer MEDICARE, SELFPAY ==
--- NOTE | 2020-05-02 | DI.CT.S_ITS ---
PROCEDURE: CT ABDOMEN PELVIS W CON INDICATIONS: Generalized abdominal pain TECHNIQUE: After the administration of oral and intravenous contrast, 5 mm thick sections acquired from the diaphragms to the symphysis. 5 mm thick coronal and sagittal reformats were performed. For radiation dose reduction, the following was used: automated exposure control, adjustment of mA and/or kV according to patient size. COMPARISON: [facility], CT, ABDOMEN/PELVIS WITH CONTRAST, 04/24/2017, 11:48. FINDINGS: Image quality: Excellent. ABDOMEN: Lung bases: Lung bases are clear. Heart size is normal. Hepatic steatosis. Subcentimeter hepatic foci are statistically cysts or hemangiomas, although technically too small to characterize accurately and therefore nonspecific. The gallbladder is grossly unremarkable. Biliary system is non-dilated. Pancreas enhances normally. Nonspecific splenic areas of hypervascularity measuring less than a cm in diameter, technically nonspecific although probably flash filling hemangiomas given their presence on the prior study No adrenal nodules. Kidneys are normal in size and enhancement, without hydronephrosis. Peritoneum and bowel: Stomach, small bowel, and colon loops are normal in caliber and wall thickness. No free fluid or air. Normal appendix. Nodes and vessels: No retroperitoneal or mesenteric adenopathy. Aorta and inferior vena cava are normal in caliber. Miscellaneous: No ventral hernias. PELVIS: Genitourinary: Bladder unremarkable. Probable multiple uterine fibroids with grossly unchanged appearance. Miscellaneous: No inguinal hernias or adenopathy. Bones: No vertebral body compression fracture. Spondylytic changes and facet arthropathy. There are multiple presumed Schmorl's nodes in the lumbar spine. IMPRESSION: No acute abnormality. Normal appearance of the appendix Hepatic steatosis Probable multiple uterine fibroids. Additional chronic and incidental findings as above. Dictated by: Nirav Valladares M.D. on 05/02/2020 at 13:22 Approved by: Nirav Valladares M.D. on 05/02/2020 at 13:44
--- NOTE | 2020-05-02 | DI.RAD.S_ITS ---
PROCEDURE: XR KNEE RT 3V INDICATIONS: RIGHT KNEE PAIN PF ONE WEEK AGO TECHNIQUE: 3 views of the knee were acquired. COMPARISON: [facility], , KNEE 3V RIGHT, 11/20/2013, 9:39. FINDINGS: Bones: No fractures or dislocations. No suspicious bony lesions. mild medial femoral tibial compartment osteoarthritis is seen. Soft tissues: There is small suprapatellar effusion. No suspicious soft tissue calcifications. IMPRESSION: Mild medial femoral tibial compartment osteoarthritis and small suprapatellar joint effusion. No fracture or dislocation. Dictated by: Steven Joyce M.D. on 05/02/2020 at 13:01 Approved by: Steven Joyce M.D. on 05/02/2020 at 13:02
== END ==
PROVIDERS: PCP Internal Medicine; Referring Provider Physician Assistant; Visit Provider Physician Assistant
DX: R10.84 Generalized abdominal pain (principal); K76.0 Fatty (change of) liver, not elsewhere classified; R63.4 Abnormal weight loss; M25.561 Pain in right knee; M25.461 Effusion, right knee
CPT/HCPCS: 73562; 74177; Q9967

== ENCOUNTER → 2020-06-01 12:07 | Outpatient (CLI) | payer MEDICARE, SELFPAY ==
--- NOTE | 2020-06-01 12:08 | DI.MRI.S_ITS ---
PROCEDURE: MR PELVIS WO/W CON INDICATIONS: Fibroids TECHNIQUE: Coronal HASTE, sagittal breath-hold T2 FSE; axial T1 FSE with and without fat saturation through the pelvis. Optional long- and short-axis uterine nonbreath-hold T2 FSE through the uterus. Sagittal or axial dynamic VIBE during administration of contrast. Post-contrast axial or coronal VIBE/2-D FLASH with fat saturation from the iliac crests to the symphysis. Optional diffusion weighted imaging and ADC may be performed. COMPARISON: [facility], CT, CT ABDOMEN PELVIS W CON, 05/02/2020, 12:19. [facility], US, US PELVIC COMPLETE, 05/23/2020, 15:35. FINDINGS: Image quality: Excellent. Uterus: The uterus measures approximately 5.8 x 4.7 x 6.9 cm. Endometrium is slightly thickened, measuring up to 0.7 cm with mild internal heterogeneity. No discrete internal enhancing mass demonstrated within the endometrium. Junctional zone is normal in thickness at 12 mm or less. Numerous, approximately 10, uterine fibroids of varying sizes are demonstrated demonstrating predominantly hypointense signal on T1 and T2. These include a large left paracentral heterogeneous intramural fibroid posteriorly measuring up to approximately 3.4 x 2.5 x 3.0 cm. A large right paracentral ventral intramural fibroid measures approximately 2.8 x 1.3 by 1.5 cm. There is a left exophytic subserosal fibroid measuring up to 2.2 x 1.4 x 1.6 cm. No definite submucosal fibroids. Small nabothian cysts are demonstrated in the cervix. Adnexa: The ovaries are diminutive in size. No adnexal masses. Urinary system: Bladder wall is normal in thickness. Distal ureters are non distended. Urethra appears normal in morphology. Nodes and vessels: No pelvic or inguinal adenopathy by size criteria. Iliac vessels are normal in size. Bowel and peritoneum: No pathologic free pelvic fluid. Inferior colon and small bowel loops are normal in caliber. There is colonic diverticulosis without acute diverticulitis. Soft tissues: No inguinal hernias. No findings of pelvic floor incompetence in the absence of provocation. Bones: Marrow demonstrates normal overall signal. There are moderate to severe degenerative changes in the hips bilaterally with periarticular synovial thickening and edema. IMPRESSION: 1. Numerous uterine fibroids as described including a left exophytic subserosal fibroid. No definite submucosal fibroids. 2. Slight thickening of the endometrium measuring up to 7 mm. No definite enhancing endometrial mass identified. 3. Bilateral moderate to severe degenerative changes in the hips. Dictated by: Ishmael Villalta M.D. on 06/01/2020 at 17:29 Approved by: Ishmael Villalta M.D. on 06/01/2020 at 17:45
== END ==
PROVIDERS: PCP Internal Medicine; Referring Provider Internal Medicine; Visit Provider Obstetrics & Gynecology
DX: D25.2 Subserosal leiomyoma of uterus (principal); M16.0 Bilateral primary osteoarthritis of hip
CPT/HCPCS: 72197; A9579

== ENCOUNTER → 2020-08-03 10:22 | Outpatient (CLI) | payer MEDICARE, SELFPAY | PROVIDERS: PCP Internal Medicine; Referring Provider Internal Medicine; Visit Provider Internal Medicine | DX: Z12.31 Encounter for screening mammogram for malignant neoplasm of breast (principal); Z53.9 Procedure and treatment not carried out, unspecified reason ==

== ENCOUNTER 2020-09-03 21:42 | Emergency (ER) | payer MEDICARE, SELFPAY ==
[2020-09-03 21:54] VITALS: BP 181/96; PULSE 81; RESP 17; TEMP 36.9; O2SAT 99; BMI 24.7
--- NOTE | 2020-09-03 21:54 | DI.RAD.S_ITS ---
PROCEDURE: XR HIP W PEL IF DONE LT 2V INDICATIONS: fall with pain and swelling TECHNIQUE: AP pelvis with lateral view(s) of the left hip(s). COMPARISON: [facility], , XR HIP W PEL IF DONE LT 2V, 08/06/2018, 13:00. FINDINGS: Bones: No acute fracture or traumatic malalignment. There is moderate to severe bilateral hip joint space narrowing which appears slightly progressed since 2019 comparison radiographs bilaterally. There is subchondral sclerosis along the roof of the acetabulum bilaterally. Marginal osteophytes along the femoral heads are also noted. There are degenerative changes in the partially visualized lower lumbar spine. No suspicious bony lesion. Soft tissues: The visualized bowel gas pattern is normal. No suspicious soft tissue calcifications. IMPRESSION: Advanced bilateral hip osteoarthritis, mildly progressed from 2019 comparison. No acute bony abnormality. Dictated by: Antonio Yo M.D. on 09/03/2020 at 22:10 Approved by: Antonio Yo M.D. on 09/03/2020 at 22:12
--- NOTE | 2020-09-03 21:54 | DI.RAD.S_ITS ---
PROCEDURE: XR KNEE RT 3V INDICATIONS: fall, pain, swelling, ecchymosis TECHNIQUE: 3 views of the knee were acquired. COMPARISON: [facility], CR, XR KNEE RT 3V, 05/02/2020, 10:43. FINDINGS: Bones: No fractures or dislocations. No suspicious bony lesions. Mild medial compartment joint space narrowing with marginal osteophyte formation is again demonstrated. Soft tissues: No joint effusion. No suspicious soft tissue calcifications. Mild prepatellar soft tissue swelling. IMPRESSION: 1. No acute bony abnormality. Mild prepatellar soft tissue swelling. 2. Mild medial compartment osteoarthritis. Appearance is similar to 05/02/2020 comparison x-rays Dictated by: Antonio Yo M.D. on 09/03/2020 at 22:13 Approved by: Antonio Yo M.D. on 09/03/2020 at 22:16
--- NOTE | 2020-09-03 22:07 | ED.FALL ---
HPI - Fall General Chief Complaint: Fall Stated Complaint: tripped by dog, multiple complaints of pain Time Seen by Provider: 09/03/20 21:44 Source: patient Mode of arrival: Ambulatory Limitations: no limitations History of Present Illness HPI Narrative: 79-year-old female nonsmoker with history of esophagitis, irritable bowel syndrome, insomnia presents with her in the chief complaint of multiple minor injuries after a ground level fall earlier this evening. She had been in her normal state of health and tripped over a small puppy at her house a few hours ago. She states they are watching the puppy and not used to having 1 around and she got her feet caught up and fell forward onto her right knee and also left hip. She denies any prodromal symptoms such as dizziness, weakness or lightheadedness. She denies any head injury or neck pain. She landed directly on her right knee and has swelling and minimal pain, the pain seems to be slightly worse with ambulation but she did walking without much in the way of difficulty. She has very minimal pain in her left hip but his presenting due to the presence of some swelling. She has full, relatively painless range of motion and denies any numbness, tingling or weakness. She does not take any blood thinners. complaint: fall Onset (ago): hour(s) Fall from: standing Fall witnessed: yes, by family Place fall occurred: home Loss of consciousness: none Prolonged down time: no Symptoms prior to fall: none Context: tripped/slipped Location of injury - extremities: Right: knee Severity: mild Quality: dull Related Data Home Medications Medication Instructions Recorded Confirmed paroxetine HCl [Paxil] 5 mg PO QDAY #0 06/03/10 06/28/20 quetiapine [Seroquel] 75 mg PO BEDTIME #0 04/14/16 06/28/20 clotrimazole 1 gm TOPICAL BIDP PRN #0 08/15/17 06/28/20 atorvastatin 20 mg tablet 20 mg PO BEDTIME 08/06/18 06/28/20 omeprazole 20 mg capsule,delayed 20 mg PO BID 08/06/18 06/28/20 release mirtazapine 30 mg BEDTIME 09/02/18 06/28/20 zolpidem [Ambien] 10 mg PO BEDTIME PRN 09/02/18 06/28/20 gabapentin 1,800 mg PO BEDTIME 03/06/19 06/28/20 lorazepam 0.5 mg PO BID PRN 03/06/19 06/28/20 [id number]-lycopen-lutein 1 tab PO DAILY 03/06/19 06/28/20 [Centrum Silver] Allergies Allergy/AdvReac Type Severity Reaction Status Date / Time Sulfa (Sulfonamide AdvReac Mild Shakey Verified 06/28/20 08:01 Antibiotics) [SULFA (SULFONAMIDE ANTIBIOTICS)] Review of Systems Constitutional Constitutional: Denies chills, Denies fatigue, Denies fever(s), Denies frequent falls, Denies lethargy and Denies weakness Eyes Eyes: Denies change in vision, Denies eye discharge, Denies irritation and Denies loss of vision ENT Ears, Nose, Mouth, and Throat: Denies change in voice, Denies dizziness, Denies neck pain, Denies sore throat and Denies throat swelling Cardiovascular Cardiovascular: Denies chest pain, Denies irregular heart rhythm, Denies lightheadedness, Denies palpitations, Denies dyspnea, Denies dyspnea on exertion and Denies orthopnea Respiratory Respiratory: Denies cough, Denies dyspnea, Denies dyspnea on exertion and Denies wheezing Gastrointestinal Gastrointestinal: Denies abdominal pain, Denies change in bowel habits, Denies diarrhea, Denies nausea and Denies vomiting Musculoskeletal Musculoskeletal: Reports arthralgias, Reports joint swelling, Denies neck pain and Denies numbness Integumentary/Breasts Skin/Breast: Denies pruritus, Denies erythema, Denies rash and Denies wounds Neurologic Neurologic: Denies behavioral changes, Denies confusion, Denies dizziness, Denies frequent falls, Denies loss of vision, Denies numbness and Denies weakness Psychiatric Psychiatric: Denies anxiety, Denies behavioral changes, Denies confusion, Denies depression, Denies homicidal ideation and Denies suicidal ideation Endocrine Endocrine: Denies fatigue, Denies flushing and Denies palpitations Hematologic/Lymphatic Hematologic/Lymphatic: Denies easy bruising Allergic/Immunologic Allergic/Immunologic: Denies urticaria, Denies throat swelling and Denies wheezing Patient History Medical History Alcohol abuse Arthritis Constipation Depression with anxiety Gastric reflux Hearing loss Hyperlipidemia IBS (irritable bowel syndrome) Insomnia Tinnitus Surgical History History of colonoscopy with polypectomy History of esophagogastroduodenoscopy (EGD) Status post exploratory laparotomy Social History household members: spouse Smoking Status: Never smoker Smoking Status: Never smoker alcohol intake frequency: a few times a month Substance Use Type: does not use Exam Narrative Exam Narrative: GENERAL: [79] year old patient appears stated age. Well-nourished, well-developed patient, in mild distress. GCS 15 HEAD: Atraumatic. Normocephalic. EYES: Pupils equal round and reactive. Extraocular motions intact. No scleral icterus. No injection or drainage. ENT: Nose without bleeding, purulent drainage. Throat without erythema, tonsillar hypertrophy or exudate. Airway patent. NECK: Trachea midline. Non tender CARDIOVASCULAR: Regular rate and rhythm without murmurs, gallops, or rubs. RESPIRATORY: Clear to auscultation. Breath sounds equal bilaterally. No wheezes, rales, or rhonchi. GASTROINTESTINAL: Abdomen soft, non-tender, nondistended. EXTREMITIES: Mild swelling lateral to left hip with full painless range of motion including internal and external rotation and axial loading. Very minimal pain overlying the swelling, no redness, ecchymosis. Left knee with small abrasion, no effusion, joint line or bony tenderness, ligamentous laxity. Full, painless range of motion of right knee with some midline bony tenderness on the patella and a [id number] effusion. No pain with axial loading, no ligamentous instability BACK: Nontender without deformity or crepitance. No flank tenderness. NEURO: AOx3. SKIN: No rash or erythema of visible areas Initial Vital Signs Initial Vital Signs: Vital Signs Temperature 98.5 F 09/03/20 21:54 Pulse Rate 81 09/03/20 21:54 Respiratory Rate 17 09/03/20 21:54 Blood Pressure 181/96 H 09/03/20 21:54 Pulse Oximetry 99 09/03/20 21:54 Course Orders Ordered: ED Orders 09/03/20 21:54 XR hip w pel if done LT 2V Stat XR knee RT 3V Stat Vital Signs Vital signs: Vital Signs - 8 hr 09/03/20 21:54 09/03/20 22:27 Temperature 98.5 F Pulse Rate 81 74 Respiratory Rate 17 18 Blood Pressure 181/96 H 147/70 H Pulse Oximetry 99 97 MDM - Fall Imaging Data Extremity x-ray #1: Attestation: I personally reviewed and interpreted this imaging study as follows: My Impression: [facility] Radiologist's Impression: [facility] Pelvis Xray: Attestation: I personally reviewed and interpreted this imaging study as follows: My Impression: [place] Radiologist's Impression: [facility] Discharge Plan Departure Patient Disposition: Home Clinical Impression: Hematoma Contusion of knee Qualifiers: Encounter type: initial encounter Laterality: right Qualified Code(s): S80.01XA - Contusion of right knee, initial encounter Instructions: How to Prevent Falls Activity Restrictions/Additional Instructions: *You have been diagnosed with [left hip hematoma, right knee contusion. X-rays and physical exam are reassuring] *What to do: *Take medications as directed *Follow up with your primary care provider in 2-3 days, call for an appointment. Let them know you were seen in the Emergency Department and that we ask that you be seen in follow up *Return to ER if you should have any new, worsening or concerning symptoms, such as [increasing pain, numbness, tingling, weakness or other bothersome symptoms Radiographic study has been interpreted by an emergency physician. The official diagnosis by radiology will be performed within the next 24 hours and should there be any change in outcome we will notify you of how to proceed. ] Prescriptions: No Action omeprazole 20 mg capsule,delayed release(DR/EC) 20 mg PO BID RF: 0 atorvastatin 20 mg tablet 20 mg PO BEDTIME RF: 0 paroxetine HCl [Paxil] 10 MG tablet 5 mg PO QDAY Qty: 0 RF: 0 quetiapine [Seroquel] 50 MG tablet 75 mg PO BEDTIME Qty: 0 RF: 0 clotrimazole 1 % cream 1 gm Topical BIDP PRN (Reason: dermatitis) Qty: 0 RF: 0 zolpidem [Ambien] 10 mg Tablet 10 mg PO BEDTIME PRN (Reason: Insomnia) RF: 0 mirtazapine 30 mg tablet 30 mg BEDTIME RF: 0 gabapentin 300 mg capsule 1,800 mg PO BEDTIME RF: 0 lorazepam 1 mg tablet 0.5 mg PO BID PRN (Reason: Anxiety) RF: 0 Centrum Silver 0.4-300-250 mg-mcg-mcg Tablet 1 tab PO DAILY RF: 0 Referrals: Jeison Willams MD [Primary Care Provider] -
[2020-09-03 22:27] VITALS: BP 147/70; PULSE 74; RESP 18; O2SAT 97
== END 2020-09-03 22:27 | disposition home or self-care (01) ==
PROVIDERS: Emergency Provider Emergency Medicine; PCP Internal Medicine
DX: S80.01XA Contusion of right knee, initial encounter (principal); W18.30XA Fall on same level, unspecified, initial encounter
CPT/HCPCS: 73502; 73562; 99283

== ENCOUNTER → 2020-09-05 10:13 | Outpatient (CLI) | payer MEDICARE, SELFPAY ==
--- NOTE | 2020-09-05 10:15 | DI.MG.S_ITS ---
BILATERAL DIGITAL SCREENING MAMMOGRAM 3D/2D WITH CAD: 09/05/2020 CLINICAL: Routine screening. Family history of breast cancer. Comparison is made to exams dated: 07/31/2019 mammogram, 07/16/2019 mammogram, 07/04/2018 mammogram, 07/31/2019 ultrasound, 07/01/2017 mammogram, and 06/09/2015 mammogram - [facility]. The tissue of both breasts is heterogeneously dense. This may lower the sensitivity of mammography. Current study was also evaluated with a Computer Aided Detection (CAD) system. No significant masses, calcifications, or other findings are seen in either breast. There has been no significant interval change. IMPRESSION: NEGATIVE There is no mammographic evidence of malignancy. A 1 year screening mammogram is recommended. This exam was interpreted at Station ID: [id number]. NOTE: For mammograms, a report in lay terms will be sent to the patient. Approximately 15% of breast malignancies will not be visualized mammographically. In the management of a palpable breast mass, a negative mammogram must not discourage biopsy of a clinically suspicious lesion. Electronically Signed By: Ranjit torres/venkat:09/05/2020 11:19:30 letter sent: Normal Exam ACR BI-RADS Category 1: Negative [id number]
== END ==
PROVIDERS: PCP Internal Medicine; Referring Provider Internal Medicine; Visit Provider Internal Medicine
DX: Z12.31 Encounter for screening mammogram for malignant neoplasm of breast (principal)
CPT/HCPCS: 77063; 77067

== ENCOUNTER → 2021-03-15 09:30 | Outpatient (CLI) | payer MEDICARE, SELFPAY ==
--- NOTE | 2021-03-15 09:33 | DI.CT.S_ITS ---
PROCEDURE: CT CHEST WO CON INDICATIONS: PULMONARY NODULE,BLOATING TECHNIQUE: Noncontrast 5 mm thick sections acquired from the pulmonary apices to the posterior costophrenic angles. 1 mm lung window, 5 mm thick coronal and sagittal and 7 mm axial MIP reformats were then acquired. For radiation dose reduction, the following was used: automated exposure control, adjustment of mA and/or kV according to patient size. COMPARISON: [facility], CT, CT ANGIO HEAD AND NECK, 01/10/2020, 13:09. FINDINGS: Image quality: Excellent. Lungs and pleura: No acute air space opacities. No pleural effusions or pneumothorax. Central and peripheral airways are patent and normal in caliber. Previously noted 5 mm upper lobe nodule on series 3, image 73 is unchanged compared to 01/10/2020. No new nodules are identified. Mediastinum: Heart size is normal. No pericardial effusion. No mediastinal adenopathy by size criteria. Thoracic aorta and central pulmonary arteries are normal in size. Esophagus is normal in caliber. No hiatal hernia. Bones and chest wall: No suspicious bony lesions. No vertebral body compression fractures. No axillary or supraclavicular adenopathy by size criteria. Thyroid gland is unremarkable . Abdomen: Visualized upper abdominal solid organs and bowel loops appear normal in the absence of contrast. IMPRESSION: 1. Stable 5 mm right upper lobe nodule compared to 01/10/2020. It is considered likely benign and no additional follow-up is recommended as below. Fleischner Society criteria for SOLID lung nodule followup. Nodule size (mm)Low-risk patientHigh-risk patient<6 (single or multiple)No routine followup.Optional CT at 12 months. 6-8 (single or multiple)CT at 6-12 months, then optional CT at 18-24 mo.CT at 6-12 months, then CT at 18-24 months. >8 (single)CT, PET-CT, or biopsy at 3 months. Same as for low-risk pts. >8 (multiple)CT at 3-6 months, then optional CT at 18-24 mo.CT at 3-6 months, then CT at 18-24 months. Recommendations do not apply to lung cancer screening, patients with immunosuppression, or patients with known primary cancer. Dictated by: Mandy Ortega M.D. on 03/15/2021 at 11:14 Approved by: Mandy Ortega M.D. on 03/15/2021 at 11:16
--- NOTE | 2021-03-15 09:33 | DI.US.S_ITS ---
PROCEDURE: US ABDOMEN COMPLETE INDICATIONS: PULMONARY NODULE,BLOATING TECHNIQUE: Real-time scanning was performed of the abdominal and retroperitoneal organs, with image documentation. COMPARISON: [facility], CT, CT ABDOMEN PELVIS W CON, 05/02/2020, 12:19. [facility], US, ABDOMEN COMPLETE, 06/28/2015, 9:28. FINDINGS: Liver: Liver is normal in size and demonstrates an echogenic focus within the central liver (without shadowing) that measures up to 12 mm. Gallbladder: No findings of gallstones or sludge are seen. The gallbladder wall is not thickened, measuring 3 mm or less. No specific pericholecystic fluid is seen. The sonographic Pelletier sign is negative. Biliary ducts: Intrahepatic bile ducts are non-dilated. Extrahepatic bile duct caliber measures 6 mm. Normal is 6-7 mm or less in diameter, or 10 mm or less post-cholecystectomy. Pancreas: Visualized portions of the pancreas are sonographically normal. Spleen: Spleen is normal in size and homogeneous in echotexture. Kidneys: Kidneys are normal in size and echotexture. Right kidney measures 10.1 cm long; left kidney measures 10.7 cm long. No hydronephrosis or nephrolithiasis. No solid masses. Aorta: Visualized aorta is normal in caliber at less than 3 cm. Iliacs: Proximal common iliac arteries are normal in caliber at less than 2.5 cm. IVC: Intrahepatic inferior vena cava is patent. Miscellaneous: No free abdominal fluid. IMPRESSION: The gallbladder demonstrates a normal sonographic appearance. No biliary dilatation is seen. Likely liver hemangioma incidentally noted. Dictated by: Jefe Staley M.D. on 03/15/2021 at 12:17 Approved by: Jefe Staley M.D. on 03/15/2021 at 12:18
== END ==
PROVIDERS: PCP Internal Medicine; Referring Provider Internal Medicine; Visit Provider Internal Medicine
DX: R91.1 Solitary pulmonary nodule (principal); R14.0 Abdominal distension (gaseous)
CPT/HCPCS: 71250; 76700

== ENCOUNTER → 2021-06-07 11:50 | Outpatient (CLI) | payer MEDICARE, SELFPAY ==
--- NOTE | 2021-06-07 11:53 | DI.CT.S_ITS ---
PROCEDURE: CT ABDOMEN PELVIS W CON INDICATIONS: Generalized abdominal pain TECHNIQUE: After the administration of oral and IV contrast, axial sections were acquired from the lung bases to the pubic symphysis. Coronal and sagittal reformats were performed. For radiation dose reduction, the following was used: automated exposure control, adjustment of mA and/or kV according to patient size. COMPARISON: [facility], CT, ABDOMEN/PELVIS WITH CONTRAST, 04/24/2017, 11:48. US, ABDOMEN COMPLETE, 06/28/2015, 9:28. [facility], CT, CT ABDOMEN PELVIS W CON, 05/02/2020, 12:19. FINDINGS: Image quality: Excellent. Lung bases: Unremarkable. Heart: No significant findings. ABDOMEN: Liver: Hepatic steatosis is present. Right anterior hepatic dome cyst is unchanged. Gallbladder: Unremarkable. Biliary ducts: Unremarkable. Pancreas: Unremarkable. Spleen: There are foci of enhancement within the spleen predominantly the inferior medial aspect, unchanged. Adrenal Glands: Unremarkable. Kidneys and Ureters: Unremarkable. Stomach and Bowel: Stomach, small bowel loops, and colon are nonobstructive. Significant colonic stool is present. Mild scattered diverticula are present. Peritoneum: No abnormal intraperitoneal fluid. No free air. Ventral Wall: Trace fat containing ventral hernia is present. Abdominal Nodes: No retroperitoneal or mesenteric adenopathy by size criteria. Vessels: Aorta and inferior vena cava are normal in size. PELVIS: Pelvic Organs: Unremarkable. Bladder: Unremarkable. Pelvic Nodes: No enlarged lymph nodes. Miscellaneous: No inguinal hernias are seen. Bones: Unremarkable. IMPRESSION: 1. Prominent colonic stool without obstruction most consistent with constipation. 2. Enhancing splenic foci, unchanged and suggestive of hemangiomas. Dictated by: Mandy Ortega M.D. on 06/07/2021 at 16:18 Approved by: Mandy Ortega M.D. on 06/07/2021 at 16:22
[2021-06-07 12:42] LABS: Add Manual Diff / Slide Review NO; Basophils Absolute Auto 100 /uL (0-100); Basophils Percent Auto 1.2 % (0-2); Eosinophils Absolute Auto 100 /uL (0-450); Eosinophils Percent Auto 2.6 % (2-4); Hematocrit 44.2 % (36-46); Hemoglobin 14.8 g/dL (12.0-16.0); Lymphocytes Absolute Auto 1600 /uL (1100-4500); Lymphocytes Percent Auto 30.3 % (25-40); Mean Corpuscular HGB Conc 33.5 % (30-36); Mean Corpuscular Hemoglobin 31.1 PG (26-34); Mean Corpuscular Volume 92.7 fL (80-100); Monocytes Absolute Auto 300 /uL (0-900); Monocytes Percent Auto 5.8 % (3-14); Neutrophils Absolute Auto 3200 /uL (1500-7000); Neutrophils Percent Auto 60.1 % (50-75); Platelet Count 215 X10^3/uL (150-400); Red Blood Cell Count 4.76 X10^6/uL (4.0-5.2); Red Cell Distribution Width 13.4 % (11.6-14.8); White Blood Cell Count 5.3 X10^3/uL (4.5-11.0)
[2021-06-07 12:46] LABS: Hemoglobin A1C% w Est Avg Glu 5.6 % (4.0-6.0)
[2021-06-07 13:04] LABS: Alanine Aminotransferase 25 IU/L (<35); Albumin 4.5 g/dL (3.5-5.0); Albumin Globulin Ratio 1.4 (1.0-2.8); Alkaline Phosphatase 74 U/L (38-126); Aspartate Aminotransferase 37 IU/L (14-36); BUN Creatinine Ratio 16.7 (6-22); Bilirubin Total 0.4 mg/dL (0.2-1.3); Blood Urea Nitrogen 17 mg/dL (7-17); Calcium 9.5 mg/dL (8.4-10.2); Carbon Dioxide 33 mmol/L (22-32); Chloride 103 mmol/L (98-107); Cholesterol 198 mg/dL (140-199); Estimated Glomerular Filt Rate 52.4 mL/min (>60); Globulin 3.3 g/dL (1.7-4.1); Glucose 83 mg/dL (80-110); HDL Cholesterol 62 mg/dL (40-60); HEMOLYSIS < 15 (0-50); LDL Cholesterol Calculated 94 mg/dL (<100); Potassium 4.8 mmol/L (3.4-5.1); Sodium 141 mmol/L (137-145); Total Protein 7.8 g/dL (6.3-8.2); Triglycerides 209 mg/dL (35-150)
[2021-06-07 13:27] LABS: TSH w/ Reflex to FT4 1.16 uIU/mL (0.47-4.68)
== END ==
PROVIDERS: PCP Internal Medicine; Referring Provider Internal Medicine; Visit Provider Internal Medicine
DX: K76.89 Other specified diseases of liver (principal); K76.0 Fatty (change of) liver, not elsewhere classified; R10.84 Generalized abdominal pain; K21.9 Gastro-esophageal reflux disease without esophagitis; Z13.29 Encounter for screening for other suspected endocrine disorder; Z13.21 Encounter for screening for nutritional disorder; Z13.228 Encounter for screening for other metabolic disorders; Z13.0 Encounter for screening for diseases of the blood and blood-forming organs and certain disorders involving the immune mechanism
CPT/HCPCS: 36415; 74177; 80053; 80061; 83036; 84443; 85025; Q9967

== ENCOUNTER → 2021-09-07 10:13 | Outpatient (CLI) | payer MEDICARE, SELFPAY ==
--- NOTE | 2021-09-07 | DI.MG.S_ITS ---
BILATERAL DIGITAL SCREENING MAMMOGRAM 3D/2D WITH CAD: 09/07/2021 CLINICAL: Routine screening. Family history of breast cancer. Comparison is made to exams dated: 09/05/2020 mammogram, 07/16/2019 mammogram, and 07/04/2018 mammogram - [facility]. The tissue of both breasts is heterogeneously dense. This may lower the sensitivity of mammography. Current study was also evaluated with a Computer Aided Detection (CAD) system. No significant masses, calcifications, or other findings are seen in either breast. There has been no significant interval change. IMPRESSION: NEGATIVE There is no mammographic evidence of malignancy. A 1 year screening mammogram is recommended. This exam was interpreted at Station ID: [id number]. NOTE: For mammograms, a report in lay terms will be sent to the patient. Approximately 15% of breast malignancies will not be visualized mammographically. In the management of a palpable breast mass, a negative mammogram must not discourage biopsy of a clinically suspicious lesion. Electronically Signed By: Charles Fletcher M.D., jr/venkat:09/07/2021 10:36:23 letter sent: Normal Exam ACR BI-RADS Category 1: Negative 3341F
== END ==
PROVIDERS: PCP Internal Medicine; Referring Provider Internal Medicine; Visit Provider Internal Medicine
DX: Z12.31 Encounter for screening mammogram for malignant neoplasm of breast (principal); Z80.3 Family history of malignant neoplasm of breast
CPT/HCPCS: 77063; 77067

== ENCOUNTER → 2022-03-23 09:17 | Outpatient (CLI) | payer MEDICARE, SELFPAY ==
[2022-03-23 10:09] LABS: COVID19 -Nasal RAPID Negative (Negative)
--- NOTE | 2022-03-23 17:33 | DI.NM.S_ITS ---
DATE OF SERVICE: 03/23/2022 PROCEDURE: Exercise perfusion study. INDICATION: Chest pain. RADIOPHARMACEUTICAL: 26.6 millicurie technetium-99m Myoview IV was injected at stress and 11.8 millicurie technetium-99m Myoview IV was injected at rest. CARDIAC STRESS: The patient walked on Kamron protocol for 6 minutes and 01 seconds, achieved 94 percent target heart rate. Baseline blood pressure 142/82 mmHg. Peak blood pressure 200/100 mmHg. Maximum heart rate 133 beats per minute. Achieved 6.1 METs of workload and SABINO -20 percent. Baseline rhythm sinus. During stress, no convincing ischemic changes seen. No significant arrhythmias. No chest pain or anginal symptoms. RAW DATA: There is adequate myocardial uptake. GATED STUDY: Resting LV ejection fraction 69 and stress LV ejection fraction 85 percent. Resting end-diastolic volume 62 mL. TID ratio 1.08, which is within normal limits. Lung/heart ratio 0.18, which is within normal limits. MYOCARDIAL PERFUSION SCAN: There is a normal myocardial perfusion. CONCLUSION: This is a normal myocardial perfusion study. Good exercise tolerance. Normal hemodynamic response. No obvious ischemic electrocardiographic changes or arrhythmias. No anginal symptoms. Overall, low- risk study. The patient had a perfusion study in February,, at that time, also, she had normal myocardial perfusion. Oliva Thania - Terry/ifeanyi doc#: [id number]/job#: [id number] dd: 03/23/2022 17:06:00 dt: 03/23/2022 17:22:00 DICTATING /COPIES TO: Michael Valero MD COPIES MNE: BROOK;
== END ==
PROVIDERS: PCP Internal Medicine; Referring Provider Internal Medicine; Visit Provider Internal Medicine
DX: R07.9 Chest pain, unspecified (principal); Z20.822 Contact with and (suspected) exposure to COVID-19
CPT/HCPCS: 78452; 87635; 93017; A9502

== ENCOUNTER 2022-04-29 13:56 | Emergency (ER) | payer MEDICARE, SELFPAY ==
[2022-04-29 14:15] VITALS: BP 134/75; PULSE 80; RESP 16; TEMP 36.8; BMI 22.6
[2022-04-29 14:36] VITALS: BP 145/65; PULSE 77; O2SAT 98
--- NOTE | 2022-04-29 15:55 | DI.CT.S_ITS ---
PROCEDURE: CT HEAD/BRAIN WO CON INDICATIONS: Pain/injury TECHNIQUE: Noncontrast 4.5 mm thick angled axial sections acquired from the foramen magnum to the vertex, with coronal and sagittal reformats. For radiation dose reduction, the following was used: automated exposure control, adjustment of mA and/or kV according to patient size. COMPARISON: [facility], CT, CT ANGIO HEAD AND NECK, 01/10/2020, 13:09. [facility], CT, CT STROKE, 01/10/2020, 12:45. [facility], CT, CT FACIAL BONES WO CON, 04/29/2022, 16:09. [facility], CT, CT HEAD/BRAIN WO CON, 03/06/2019, 11:27. FINDINGS: Image quality: Excellent. CSF spaces: Basal cisterns are patent. No extra-axial fluid collections. The ventricles are symmetric in size and shape. Brain: No intracranial bleeds or masses. There is cerebral volume loss for age, with resultant ventricular and sulcal prominence. There are periventricular and deep white matter chronic small vessel ischemic changes. There is intracranial internal carotid artery atherosclerosis. Skull and face: There is a left temporal scalp hematoma seen. No associated fracture is seen. Calvarium and visualized facial bones appear intact, without suspicious lesions. Sinuses: Visualized sinuses and mastoids are clear. IMPRESSION: Left temporal scalp hematoma. No associated fracture is seen. No acute intracranial hemorrhage or other acute intracranial abnormality is seen. Dictated by: Jefe Staley M.D. on 04/29/2022 at 15:37 Approved by: Jefe Staley M.D. on 04/29/2022 at 15:38
--- NOTE | 2022-04-29 15:55 | DI.CT.S_ITS ---
PROCEDURE: CT FACIAL BONES WO CON INDICATIONS: Pain/injury TECHNIQUE: Noncontrast 2.5 mm thick axial images acquired from the mandible through the frontal sinuses, with coronal and sagittal reformatting. For radiation dose reduction, the following was used: automated exposure control, adjustment of mA and/or kV according to patient size. COMPARISON: [facility], CT, CT HEAD/BRAIN WO CON, 04/29/2022, 16:09. FINDINGS: Image quality: There is artifact associated with the metallic hardware. Bones and teeth: Orbital kay are intact. Sinus kay show no fracture or deformity. Nasal bones and septum are intact. Chronic leftward nasal septal deviation is seen. Visualized portions of the mandible demonstrate no fractures or subluxation. Zygomatic arches are intact. Pterygoid plates are intact. Visualized portions of the skull base and auditory canals are intact. Degenerative changes are seen throughout, particular involving the visualized upper cervical spine. Sinuses: Paranasal sinuses are aerated, without fluid levels, mucosal thickening, or mucoceles. Mastoid air cells are aerated. The ostiomeatal complexes are patent, yet are constitutionally narrowed, with bilateral Ana cells. Soft tissues: There is a focal scalp hematoma involving the left anterior temporal region, as on series 3, image 118. Soft tissue swelling can be seen of the cheeks, left worse than right. No soft tissue gas is seen. Vascular: Visualized vascular structures appear normal in the absence of contrast. Bony vascular foramina and canals are intact. IMPRESSION: Left temporal scalp hematoma seen, without an associated fracture. No facial bone fracture is seen. Additional findings: Constitutionally narrowed ostiomeatal complexes, with bilateral Ana cells Degenerative changes, particularly involving the visualized cervical spine Dictated by: Jefe Staley M.D. on 04/29/2022 at 15:33 Approved by: Jefe Staley M.D. on 04/29/2022 at 15:36
--- NOTE | 2022-04-29 15:57 | ED_ITS ---
HPI - Head Injury General Chief complaint: Head Injury Stated complaint: Hit Head, Hematoma Time Seen by Provider: 04/29/22 15:43 History of Present Illness HPI Narrative: Patient here for facial bruising swelling for the past week. Patient here with . She states last Saturday at home she bumped her left upper lateral forehead/scalp line against a dresser corner. No loss of consciousness. She saw ?stars?. She was doing well through the week until , . She went and visited family. She woke that morning with left eye swelling. That has resolved. 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 Through the course of the weekend the swelling around the eye resolved but she has dependent ecchymosis that has gone around both eyes and left cheek. It appears to be dissipating as the coloration is greenish yellowish on the periphery. Patient denies any facial pain. No loss of consciousness. No confusion or altered mental status. No vomiting. Patient is not on any blood thinners, however she was taking aspirin since her injury. She usually does not take aspirin. I informed her that could thin the blood around her hematoma on the scalp causing delayed healing. She will use Tylenol now. She did have pain but continue to use aspirin because she thought that would help heal Related Data Home Medications Medication Instructions Recorded Confirmed paroxetine HCl 10 mg tablet (Paxil) 5 mg PO QDAY ##0 06/03/10 06/28/20 quetiapine 50 mg tablet (Seroquel) 75 mg PO BEDTIME ##0 04/14/16 06/28/20 clotrimazole 1 % topical cream 1 gm topical BIDP PRN dermatitis 08/15/17 06/28/20 ##0 atorvastatin 20 mg tablet 20 mg PO BEDTIME 08/06/18 06/28/20 omeprazole 20 mg capsule,delayed 20 mg PO BID 08/06/18 06/28/20 release mirtazapine 30 mg tablet 30 mg BEDTIME 09/02/18 06/28/20 zolpidem 10 mg tablet (Ambien) 10 mg PO BEDTIME PRN Insomnia 09/02/18 06/28/20 gabapentin 300 mg capsule 1,800 mg PO BEDTIME 03/06/19 06/28/20 lorazepam 1 mg tablet 0.5 mg PO BID PRN Anxiety 03/06/19 06/28/20 hnmiwhnq-rry-ypkvd acid 0.4 1 tab PO DAILY 03/06/19 06/28/20 mg-lycopene 300 mcg-lutein 250 mcg tablet (Centrum Silver) Allergies Allergy/AdvReac Type Severity Reaction Status Date / Time Sulfa (Sulfonamide AdvReac Mild Shakey Verified 06/28/20 08:01 Antibiotics) [SULFA (SULFONAMIDE ANTIBIOTICS)] Review of Systems Review of Systems Narrative: GENERAL: negative chills, fatigue, malaise, fever, sweats. HEENT: negative sinus pain, ear pain, sore throat RESPIRATORY: negative dyspnea, cough CARDIOVASCULAR: negative chest pain, palpitations GASTROINTESTINAL: negative nausea, vomiting, abdominal pain : negative dysuria, frequency, hematuria MUSCULOSKELETAL: negative muscle or bony pain SKIN: negative rash, skin lesions, positive skin injury NEUROLOGIC: negative weakness, numbness ROS Unobtainable: All systems reviewed & are unremarkable except as noted in HPI and below Patient History Medical History Alcohol abuse Arthritis Constipation Depression with anxiety Gastric reflux Hearing loss Hyperlipidemia IBS (irritable bowel syndrome) Insomnia Tinnitus Surgical History History of colonoscopy with polypectomy History of esophagogastroduodenoscopy (EGD) Status post exploratory laparotomy Social History household members: spouse Smoking Status: Never smoker Smoking Status: Never smoker alcohol intake frequency: a few times a month Substance Use Type: does not use Exam Narrative Exam Narrative: GENERAL: in no distress, not toxic not dyspneic HEAD: Normocephalic. There is a 2 cm hematoma on the left upper outer forehead in the hairline. There is small scabbing over the central portion. It is mild tender to touch. No crepitus or step-off. EYES: Pupils equal round No scleral icterus. There is bilateral periorbital ecchymosis/raccoon's eyes pattern. There is lateral cheek ecchymosis as well. Face otherwise is nontender. EOMI. PERRLA. No subconjunctival hemorrhage. Sclerae is clear ENT: Mucous membranes moist. NECK: Trachea midline. No midline tenderness step-off CARDIOVASCULAR: Regular rate and rhythm without murmurs RESPIRATORY: Clear to auscultation. Breath sounds equal bilaterally. No wheezes, rales, or rhonchi. NEURO: AOx4. SKIN: Warm and dry PSYCH: Not anxious, is cooperative Initial Vital Signs Initial Vital Signs: Vital Signs Temperature 98.3 F 04/29/22 14:15 Pulse Rate 80 04/29/22 14:15 Respiratory Rate 16 04/29/22 14:15 Blood Pressure 134/75 04/29/22 14:15 Oxygen Delivery Method 04/29/22 14:15 Course Course Course Narrative: No new issues during course of stay Orders Ordered: ED Orders 04/29/22 15:55 CT facial bones wo con Stat CT head/brain wo con Stat Reevaluation(s) Reevaluation #1: Reviewed results with patient and . At this time imaging are reassuring. The bruising is expected from dependent edema/bruising is gravity dependent with the ecchymosis drainage. She understands no more aspirin and will take Tylenol if she does develop any pain. No pain at this time. Return precautions reviewed with her. Time: 16:47 Vital Signs Vital signs: Vital Signs - 8 hr 04/29/22 14:15 04/29/22 14:36 04/29/22 14:36 Temperature 98.3 F Pulse Rate 80 77 Respiratory Rate 16 Blood Pressure 134/75 145/65 H Pulse Oximetry 98 Oxygen Delivery Method Room Air MDM - Head Injury Differential Diagnosis Differential diagnosis: Likely concussion without loss of consciousness, epidural hematoma, closed head injury, subdural hematoma and other (Dependent ecchymosis/contusion) Imaging Data CT scan - head: Radiologist's Impression: [address] [address] [address] Scan Report Signed Patient: Thania Baptiste MR#: [id number] : 1940 Acct:[id number] Age/Sex: 81 / F Date of Service: 04/29/22 Loc: ED Accession Number: [id number] ?? Procedure: CT head/brain wo con Ordering Provider: Phillip Schaefer MD PROCEDURE:? CT HEAD/BRAIN WO CON ? INDICATIONS:? Pain/injury ? TECHNIQUE:? Noncontrast 4.5 mm thick angled axial sections acquired from the foramen magnum to the vertex, with coronal and sagittal reformats.? For radiation dose reduction, the following was used:? automated exposure control, adjustment of mA and/or kV according to patient size.? ? COMPARISON:? [facility], CT, CT ANGIO HEAD AND NECK, 01/10/2020, 13:09.? [facility], CT, CT STROKE, 01/10/2020, 12:45.? [facility], CT, CT FACIAL BONES WO CON, 04/29/2022, 16:09.? [facility], CT, CT HEAD/BRAIN WO CON, 03/06/2019, 11:27. ? FINDINGS:? Image quality:? Excellent.? ? CSF spaces:? Basal cisterns are patent.? No extra-axial fluid collections.? The ventricles are symmetric in size and shape.? ? Brain:? No intracranial bleeds or masses.? There is cerebral volume loss for age, with resultant ventricular and sulcal prominence.? There are periventricular and deep white matter chronic small vessel ischemic changes.? There is intracranial internal carotid artery atherosclerosis.? ? Skull and face:? There is a left temporal scalp hematoma seen.? No associated fracture is seen.? Calvarium and visualized facial bones appear intact, without suspicious lesions.? ? Sinuses:? Visualized sinuses and mastoids are clear.? ? ? IMPRESSION:? Left temporal scalp hematoma.? No associated fracture is seen. ? No acute intracranial hemorrhage or other acute intracranial abnormality is seen. ? ? Dictated by: Jefe Staley M.D. on 04/29/2022 at 15:37 ? ? Approved by: Jefe Staley M.D. on 04/29/2022 at 15:38 ? CT facial bone: Radiologist's Impression: [address] [address] [address] Scan Report Signed Patient: Thania Baptiste MR#: [id number] : 1940 Acct:[id number] Age/Sex: 81 / F Date of Service: 04/29/22 Loc: ED Accession Number: [id number] ?? Procedure: CT facial bones wo con Ordering Provider: Phillip Schaefer MD PROCEDURE:? CT FACIAL BONES WO CON ? INDICATIONS:? Pain/injury ? TECHNIQUE:? Noncontrast 2.5 mm thick axial images acquired from the mandible through the frontal sinuses, with coronal and sagittal reformatting.? For radiation dose reduction, the following was used:? automated exposure control, adjustment of mA and/or kV according to patient size.? ? COMPARISON:? [facility], CT, CT HEAD/BRAIN WO CON, 04/29/2022, 16:09. ? FINDINGS:? Image quality:? There is artifact associated with the metallic hardware. ? ? Bones and teeth:? Orbital kay are intact.? Sinus kay show no fracture or deformity.? Nasal bones and septum are intact.? Chronic leftward nasal septal deviation is seen.? Visualized portions of the mandible demonstrate no fractures or subluxation.? Zygomatic arches are intact.? Pterygoid plates are intact.? Visualized portions of the skull base and auditory canals are intact.? ? Degenerative changes are seen throughout, particular involving the visualized upper cervical spine. ? Sinuses:? Paranasal sinuses are aerated, without fluid levels, mucosal thickening, or mucoceles.? Mastoid air cells are aerated.? The ostiomeatal complexes are patent, yet are constitutionally narrowed, with bilateral Ana cells. ? Soft tissues:? There is a focal scalp hematoma involving the left anterior temporal region, as on series 3, image 118. Soft tissue swelling can be seen of the cheeks, left worse than right.? No soft tissue gas is seen. ? Vascular:? Visualized vascular structures appear normal in the absence of contrast.? Bony vascular foramina and canals are intact.? IMPRESSION:? Left temporal scalp hematoma seen, without an associated fracture. ? No facial bone fracture is seen. ? ? Additional findings: Constitutionally narrowed ostiomeatal complexes, with bilateral Ana cells Degenerative changes, particularly involving the visualized cervical spine? ? Dictated by: Jefe Staley M.D. on 04/29/2022 at 15:33 ? ? Approved by: Jefe Staley M.D. on 04/29/2022 at 15:36 ? MDM Narrative Medical decision making narrative: Appropriate for discharge home. Exam and imaging are reassuring. Bruising pa tient experiencing is likely dependent ecchymosis from body position and sleeping position. No blood work indicated this time. Patient not on a blood thinner. Patient will stop taking aspirin. No headache or neuro complaints or neuro deficits on exam. Return precautions reviewed with patient and . They desire discharge home. Discharge Plan Departure Patient Disposition: Home Clinical Impression: Hematoma of left parietal scalp Instructions: DI for Hematoma (Bruise), DI for Closed Head Injury Activity Restrictions/Additional Instructions: See family doctor this week for re-evaluation. Do not take aspirin as this may delay healing process. If you do develop any pain may take Tylenol. The skin discoloration and bruising will take days to resolve. May use cool packs to the scalp to reduce swelling. Return if worse if any questions or concerns Prescriptions: No Action omeprazole 20 mg capsule,delayed release(DR/EC) 20 mg PO BID atorvastatin 20 mg tablet 20 mg PO BEDTIME paroxetine HCl [Paxil] 10 MG tablet 5 mg PO QDAY Qty: 0 quetiapine [Seroquel] 50 MG tablet 75 mg PO BEDTIME Qty: 0 Rx Instructions: take 1.5 tabs at bedtime clotrimazole 1 % cream 1 gm Topical BIDP PRN (Reason: dermatitis) Qty: 0 zolpidem [Ambien] 10 mg Tablet 10 mg PO BEDTIME PRN (Reason: Insomnia) mirtazapine 30 mg tablet 30 mg BEDTIME gabapentin 300 mg capsule 1,800 mg PO BEDTIME Rx Instructions: 2 tabs in AM and 4 tabs at bedtime lorazepam 1 mg tablet 0.5 mg PO BID PRN (Reason: Anxiety) Centrum Silver 0.4-300-250 mg-mcg-mcg Tablet 1 tab PO DAILY Referrals: Loki Ashley MD [Primary Care Provider] - Visit Report Forms: Patient Portal/API
[2022-04-29 17:30] VITALS: BP 129/70; PULSE 77; RESP 17; O2SAT 98
== END 2022-04-29 17:31 | disposition home or self-care (01) ==
PROVIDERS: Emergency Provider Emergency Medicine; PCP Internal Medicine
DX: S00.03XA Contusion of scalp, initial encounter (principal); W22.8XXA Striking against or struck by other objects, initial encounter
CPT/HCPCS: 70450; 70486; 99283; 99284

== ENCOUNTER 2022-06-11 10:14 | Day surgery (SDC) | payer MEDICARE, SELFPAY ==
--- NOTE | 2022-06-11 | PATH_ITS ---
[facility] Accession Number: [id number] . 01 Material submitted: . cecum - CECUM POLYP . 01 Diagnosis: Cecum, Polyp, Biopsy: Tubular adenoma. [facility] 06/13/2022 1007 Local . 01 Electronically signed: . Elba Ventura MD, Pathologist NPI- [id number] . 01 Gross description: . CECUM POLYP: Received in formalin is 1 fragment(s) of reyes, soft tissue measuring 0.2 x 0.1 x 0.1 cm submitted entirely in 1 cassette(s) /CPE 06/12/2022 1029 Local . 01 Pathologist provided ICD-10: D12.0 . 01 CPT . 908388 Specimen Comment: A courtesy copy of this report has been sent to [phone], [phone] Specimen Comment: [id number] Performed at: 01 [facility] [address] [place] [address] [address], [place], [place] [id number] MD Ishmael Hernández MD Phone: [phone]
[2022-06-11 10:47] VITALS: BMI 22.6
[2022-06-11 11:00] LABS: COVID19 -Nasal RAPID Negative (Negative)
[2022-06-11 11:02] VITALS: BP 116/63; PULSE 78; RESP 24; TEMP 37.2; O2SAT 97
[2022-06-11] MEDS: LACTATED RINGERS 1,000 ML 42 ML IV (11:06)
--- NOTE | 2022-06-11 11:47 | PM.HP.1 ---
History of Present Illness History of Present Illness Date Patient Seen: 06/11/22 Time Patient Seen: 11:47 Chief complaint: Colonoscopy Narrative: I reviewed my office note. Still struggling with incomplete evacuation Patient History Medical History Alcohol abuse Arthritis Constipation Depression with anxiety Gastric reflux Hearing loss Hyperlipidemia IBS (irritable bowel syndrome) Insomnia Tinnitus Surgical History History of colonoscopy with polypectomy History of esophagogastroduodenoscopy (EGD) Status post exploratory laparotomy Family & Social History Social History: household members spouse Tobacco & Substance use: Smoking Status Never smoker alcohol intake current alcohol intake frequency a few times a month Substance Use Type does not use Meds Home Medications and Allergies Home Medications Medication Instructions Recorded Confirmed Type quetiapine 50 mg tablet (Seroquel) 75 mg PO BEDTIME ##0 04/14/16 06/11/22 History clotrimazole 1 % topical cream 1 gm topical BIDP PRN dermatitis 08/15/17 06/28/20 History ##0 atorvastatin 20 mg tablet 20 mg PO BEDTIME 08/06/18 06/11/22 History omeprazole 20 mg capsule,delayed 20 mg PO BID PRN Acid Reflux 08/06/18 06/11/22 History release mirtazapine 30 mg tablet 30 mg PO BEDTIME 09/02/18 06/11/22 History zolpidem 10 mg tablet (Ambien) 10 mg PO BEDTIME PRN Insomnia 09/02/18 06/11/22 History gabapentin 300 mg capsule 1,800 mg PO BEDTIME 03/06/19 06/11/22 History lorazepam 1 mg tablet 0.5 mg PO BID PRN Anxiety 03/06/19 06/11/22 History uvkegtgh-xhm-exnja acid 0.4 1 tab PO DAILY 03/06/19 06/11/22 History mg-lycopene 300 mcg-lutein 250 mcg tablet (Centrum Silver) Allergies Allergy/AdvReac Type Severity Reaction Status Date / Time Sulfa (Sulfonamide AdvReac Mild Shakey Verified 06/11/22 10:44 Antibiotics) [SULFA (SULFONAMIDE ANTIBIOTICS)] Review of Systems Review of Systems ROS: Yes All systems reviewed with the patient and are negative except as otherwise documented Exam Vital Signs (past 8 hours): - 06/11/22 11:02 Temperature 99.0 F Pulse Rate 78 Respiratory Rate 24 Blood Pressure 116/63 Pulse Oximetry 97 Oxygen Delivery Method Room Air Oxygen Delivery Method Room Air Const General: cooperative HENMT Head: normal to inspection Eyes General: appearance normal, both eyes and all related structures Neck Neck: normal visual inspection Chest Chest: normal inspection of the chest Resp Effort & Inspection: normal respiratory effort Cardio Rate: regular rate GI Inspection: normal to inspection Skin General: no rashes or lesions noted Neuro General: patient alert and patient awake Extrem General: normal to inspection and no pedal edema Psych Appearance: grossly normal Objective Labs Labs: Laboratory Results - last 24 hr 06/11/22 10:37 SARS-CoV-2 (PCR) Negative Assessment & Plan Assessment & Plan narrative: 81-year-old female with a personal history of adenomatous colon polyp a sense of constipation with difficult fecal evacuations. Colonoscopy is pursued today. Time Spent With Patient Critical Care time: I spent a total of [] minutes of critical care time on this patient's care today; this time is exclusive of procedural time.
--- NOTE | 2022-06-11 11:48 | PM.PREOP ---
Pre-operative Note COVID-19 COVID-19 status: Negative Result date/Date tested (Pos, Neg/Pending): 06/11/22 Criteria for continued procedure: Possibility delay results in more complex future surgery or treatment Interval Note History & Physical reviewed/Exam performed by Physician: Yes Changes to H&P: No ASA Class (for procedural sedation): II
--- NOTE | 2022-06-11 13:01 | PM.OP.COLON ---
Operative Date/Time/Diagnoses Date of procedure: 06/11/22 Time of procedure: 13:01 Pre-op diagnosis: Personal history of colon polyps. Constipation difficulty evacuations Post-op diagnosis: same Procedure & Clinicians Study performed: Colonoscopy with cold forceps polypectomy Same procedure as scheduled: Yes Indications: Personal history of colon polyps. Constipation difficulty evacuations Surgeon: Gabo Pierre Procedure Notes SCOAP/Timeout: Done Procedure in detail: After the risks and benefits were explained, written and verbal informed consent was obtained. The patient was brought into the procedure room and placed into the left lateral decubitus position. Please see anesthesia notes for sedation details. Digital rectal examination was accomplished. The scope was introduced into the patient and advanced under direct visualization to the cecum as identified by the appendiceal orifice and ileocecal valve. The scope was slowly withdrawn to carefully examine the mucosa for any defects or lesions. Comprehensive imaging was accomplished throughout the rectum including the dentate line. The colon was decompressed, the scope was then removed from the patient who tolerated the procedure well. Pediatric colonoscope Bowel prep adequate Scope withdrawal time: 8 minutes Sedation minutes: 25 Complications: none Impression: There were some scattered diverticula in the sigmoid. Patient had evidence of grade 2-3 mild internal nonbleeding nonthrombosed hemorrhoids. On digital exam prior to sedation, the patient had a normal anal wink. She had no masses detected. Resting tone was within normal limits. Her squeeze capacity was perhaps slightly reduced. With simulated defecation, she had fairly normal relaxation of the external anal sphincter mechanism. In the cecum, there was a diminutive polyp removed with cold forceps. The patient had a fairly redundant somewhat tortuous colon. Abdominal pressure and the use of the internal stiffening ger were required for cecal intubation. No additional pathology was appreciated throughout. Endoscopic diagnosis 1. Diminutive colon polyp 2. Grade 2-3 hemorrhoids 3. Diverticulosis 4. Lengthy redundant colon Post-procedure Plan for aftercare: 1. Await histopathology 2. Continue with fiber based bowel regimen 3. Follow up GI clinic any time as needed Disposition: PACU
[2022-06-11 13:05] VITALS: BP 108/69; PULSE 72; RESP 17; TEMP 36.8; O2SAT 96
[2022-06-11 13:10] VITALS: BP 138/82; PULSE 73; RESP 13; O2SAT 98
[2022-06-11 13:14] VITALS: BP 134/79; PULSE 71; RESP 11; TEMP 36.8; O2SAT 97
[2022-06-11 13:16] VITALS: BP 123/73; PULSE 69; RESP 21; O2SAT 98
== END 2022-06-11 13:28 | disposition home or self-care (01) ==
PROVIDERS: PCP Internal Medicine; Referring Provider Internal Medicine Gastroenterology; Visit Provider Internal Medicine Gastroenterology
PROC: 0DJD8ZZ Inspection of Lower Intestinal Tract, Via Natural or Artificial Opening Endoscopic (ICD-10-PCS; CPT 45378; principal; 2022-06-11 11:30)
DX: K59.00 Constipation, unspecified (principal); Z20.822 Contact with and (suspected) exposure to COVID-19; K64.1 Second degree hemorrhoids; K57.30 Diverticulosis of large intestine without perforation or abscess without bleeding; D12.0 Benign neoplasm of cecum
CPT/HCPCS: 45380; 87635; J2250; J3010

== ENCOUNTER → 2022-09-12 11:01 | Outpatient (CLI) | payer MEDICARE, SELFPAY ==
--- NOTE | 2022-09-12 | DI.MG.S_ITS ---
BILATERAL DIGITAL SCREENING MAMMOGRAM 3D/2D WITH CAD: 09/12/2022 CLINICAL: Routine screening. Family history of breast cancer. Comparison is made to exams dated: 09/07/2021 mammogram, 09/05/2020 mammogram, and 07/16/2019 mammogram - [facility]. Both breasts are heterogeneously dense, which may obscure small masses (category c / 51-75% glandular tissue). Current study was also evaluated with a Computer Aided Detection (CAD) system. No significant masses, calcifications, or other findings are seen in either breast. There has been no significant interval change. IMPRESSION: NEGATIVE There is no mammographic evidence of malignancy. A 1 year screening mammogram is recommended. Based on the Tyrer Cuzick model (a risk assessment model) the patient's lifetime risk is 6.5% and her 10 year risk is 0.0%. According to the ACR, ACS, and NCCN guidelines, an annual breast MRI exam along with mammogram is recommended if the patient's lifetime risk is 20% or greater. This exam was interpreted at Station ID: [id number]. NOTE: For mammograms, a report in lay terms will be sent to the patient. Approximately 15% of breast malignancies will not be visualized mammographically. In the management of a palpable breast mass, a negative mammogram must not discourage biopsy of a clinically suspicious lesion. Electronically Signed By: Nubia ayala/venkat:09/12/2022 11:32:06 letter sent: Normal Exam ACR BI-RADS Category 1: Negative 3341F
== END ==
PROVIDERS: PCP Physician Assistant; Referring Provider Physician Assistant; Visit Provider Physician Assistant
DX: Z12.31 Encounter for screening mammogram for malignant neoplasm of breast (principal); Z80.3 Family history of malignant neoplasm of breast
CPT/HCPCS: 77063; 77067

== ENCOUNTER 2022-11-23 08:29 | Emergency (ER) | payer MEDICARE, SELFPAY ==
[2022-11-23] VITALS (14 sets, daily range): BP systolic 122–182; BP diastolic 60–88; PULSE 74–85; RESP 14–25; TEMP 36.8; O2SAT 93–98; BMI 22.6
--- NOTE | 2022-11-23 08:31 | ED.CHESTPAIN ---
HPI - Chest Pain General Chief Complaint: Chest Pain Stated Complaint: squeezing feeling in chest Time Seen by Provider: 11/23/22 08:31 Source: patient and RN notes reviewed Mode of arrival: Ambulatory Limitations: no limitations Limitations: no limitations History of Present Illness HPI narrative: This is an 82-year-old female with history of dyslipidemia, insomnia and anxiety who presents with complaint of tightness substernally that woke her from sleep at 3:30 a.m. this morning. Patient states it feels like something squeezing her heart. She states she has not had similar symptoms in the past. When she woke up she was a little sweaty she had some beads of sweat on her upper lip and felt warm. She denies shortness of breath, no nausea or vomiting no syncope or lightheadedness, no new swelling in extremities, she is had some mild constipation. No dysuria, urgency or frequency. She notes a little upper abdominal discomfort which he states is always there longstanding. Patient states she did take a 0.5 mg lorazepam for anxiety which she states made minimal change. She is not had prior cardiac issues in the past no prior cardiac stents or interventions. She states she takes medications for dyslipidemia, anxiety and sleep she does not take any medication for hypertension, diabetes. She does not take an aspirin or other blood thinners daily. She states she would a lap about 20 years ago to evaluate for weight loss she states the surgeon accidentally nicked a blood vessel and she had to go back to the OR for repair but has not had any other surgeries past. She states allergic to sulfa. No tobacco, alcohol or illicit she follows with Yumiko Knutson for primary care at [facility] Related Data Home Medications Medication Instructions Recorded Confirmed quetiapine 50 mg tablet (Seroquel) 50 mg PO BID ##0 04/14/16 11/23/22 clotrimazole 1 % topical cream 1 gm topical BIDP PRN dermatitis 08/15/17 06/28/20 ##0 atorvastatin 20 mg tablet 20 mg PO BEDTIME 08/06/18 11/23/22 omeprazole 20 mg capsule,delayed 20 mg PO BID PRN Acid Reflux 08/06/18 06/11/22 release mirtazapine 30 mg tablet 30 mg PO BEDTIME 09/02/18 11/23/22 zolpidem 10 mg tablet (Ambien) 10 mg PO BEDTIME PRN Insomnia 09/02/18 11/23/22 gabapentin 300 mg capsule 1,800 mg PO BEDTIME 03/06/19 11/23/22 lorazepam 1 mg tablet 0.5 mg PO BID PRN Anxiety 03/06/19 11/23/22 [id number] acid 0.4 1 tab PO DAILY 03/06/19 11/23/22 mg-lycopene 300 mcg-lutein 250 mcg tablet (Centrum Silver) Allergies Allergy/AdvReac Type Severity Reaction Status Date / Time Sulfa (Sulfonamide AdvReac Mild Shakey Verified 06/11/22 10:44 Antibiotics) [SULFA (SULFONAMIDE ANTIBIOTICS)] Review of Systems Review of Systems ROS Unobtainable: All systems reviewed & are unremarkable except as noted in HPI and below Patient History Medical History Alcohol abuse Arthritis Constipation Depression with anxiety Gastric reflux Hearing loss Hyperlipidemia IBS (irritable bowel syndrome) Insomnia Tinnitus Surgical History History of colonoscopy with polypectomy History of esophagogastroduodenoscopy (EGD) Status post exploratory laparotomy Social History household members: spouse Smoking Status: Never smoker alcohol intake: current Smoking Status: Never smoker alcohol intake frequency: a few times a month Substance Use Type: does not use Exam Narrative Exam Narrative: GENERAL: Alert and oriented x three, elderly female in mild distress. HEENT: Head normocephalic, atraumatic, EOMI, pupils reactive, face symmetric, moist mucous membranes NECK: Supple, full range of motion CARDIOVASCULAR: Regular rate and rhythm without murmurs, rubs or gallops. No JVD. No swelling bilateral lower extremities. RESPIRATORY: Breath sounds equal bilaterally, no wheezes rales or rhonchi. ABDOMEN: Soft, nontender. Normoactive bowel sounds all 4 quadrants. No guarding or rebound, rigidity, no mass : No CVA tenderness EXTREMITIES: Normal range of motion, no clubbing or edema. Neurovascularly intact NEUROLOGICAL: Cranial nerves II through XII grossly intact. Moving all extremities SKIN: Warm, dry, no petechiae, no rashes or lesions. Initial Vital Signs Initial Vital Signs: Vital Signs Pulse Rate 79 06/23/23 08:34 Pulse Oximetry 98 11/23/22 08:34 Course Orders Ordered: ED Orders 11/23/22 10:33 Trop I [Troponin I] Stat 11/23/22 10:38 EKG-12 Lead Stat Discontinued Medications Al Hydrox/Mg Hydrox/Simethicone (Mag Hydrox/Alum/Simeth 30 Ml Udc) 30 ml PO NOW ONE Stop: 11/23/22 10:11 Last Admin: 11/23/22 10:19 Dose: 30 ml Documented By: ENOCH Aspirin (Aspirin 81 Mg Chew Tab) 324 mg PO NOW ONE Stop: 11/23/22 08:38 Last Admin: 11/23/22 08:53 Dose: 324 mg Documented By: ENOCH Nitroglycerin (Nitroglycerin 0.4 Mg Sl Tab) 0.4 mg SL [id number] PRN PRN Reason: Chest Pain Last Admin: 11/23/22 09:04 Dose: 0.4 mg Documented By: Admin: 11/23/22 08:53 Dose: 0.4 mg Documented By: ENOCH Pantoprazole Sodium (Pantoprazole 40 Mg Vial) 40 mg IV NOW ONE Stop: 11/23/22 10:11 Last Admin: 11/23/22 10:19 Dose: 40 mg Documented By: ENOCH Vital Signs Vital signs: Vital Signs - 8 hr 11/23/22 11:42 11/23/22 11:42 Pulse Rate 83 Respiratory Rate 25 H Blood Pressure 140/65 Pulse Oximetry 98 MDM - Chest Pain Lab Data 11/23/22 08:35 11/23/22 08:35 Labs: Lab Results 11/23/22 11/23/22 11/23/22 Range/Units 08:35 08:35 08:35 WBC 6.8 (4.5-11.0) X10^3/uL RBC 4.81 (4.0-5.2) X10^6/uL Hgb 15.4 (12.0-16.0) g/dL Hct 45.7 (36-46) % MCV 95.1 (80-100) fL MCH 32.1 (26-34) PG MCHC 33.7 (30-36) % RDW 13.5 (11.6-14.8) % Plt Count 186 (150-400) X10^3/uL Neut % (Auto) 79.2 H (50-75) % Lymph % (Auto) 14.2 L (25-40) % [place] % (Auto) 5.1 (3-14) % Eos % (Auto) 1.0 L (2-4) % Baso % (Auto) 0.5 (0-2) % Neut # (Auto) 5400 (0749-4831) /uL Lymph # (Auto) 1000 L (3086-6029) /uL [place] # (Auto) 300 (0-900) /uL Eos # (Auto) 100 (0-450) /uL Baso # (Auto) 0 (0-100) /uL PT 11.5 (10.1-12.7) SECONDS INR 1.0 (0.9-1.3) APTT 31 (26-36) SECONDS Sodium 138 (137-145) mmol/L Potassium 4.2 (3.4-5.1) mmol/L Chloride 101 (98-107) mmol/L Carbon Dioxide 29 (22-32) mmol/L BUN 16 (7-17) mg/dL Creatinine 0.87 (0.52-1.04) mg/dL Estimated GFR > 60 (>60) mL/min BUN/Creatinine Ratio 18.4 (6-22) Glucose 101 (80-110) mg/dL Calcium 9.4 (8.4-10.2) mg/dL Magnesium 2.2 (1.6-2.3) mg/dL Total Bilirubin 0.7 (0.2-1.3) mg/dL AST 37 H (14-36) IU/L ALT 29 (<35) IU/L Alkaline Phosphatase 87 (38-126) U/L Total Creatine Kinase 104 (30-135) U/L CK-MB (CK-2) TNP CK-MB (CK-2) Rel Index TNP Troponin I < 0.012 (0.01-0.034) ng/mL NT-Pro-B Natriuret Pep (<450) pg/mL Total Protein 8.3 H (6.3-8.2) g/dL Albumin 4.7 (3.5-5.0) g/dL Globulin 3.6 (1.7-4.1) g/dL Albumin/Globulin Ratio 1.3 (1.0-2.8) Lipase 207 (23-300) U/L 11/23/22 11/23/22 Range/Units 08:35 10:33 WBC (4.5-11.0) X10^3/uL RBC (4.0-5.2) X10^6/uL Hgb (12.0-16.0) g/dL Hct (36-46) % MCV (80-100) fL MCH (26-34) PG MCHC (30-36) % RDW (11.6-14.8) % Plt Count (150-400) X10^3/uL Neut % (Auto) (50-75) % Lymph % (Auto) (25-40) % [place] % (Auto) (3-14) % Eos % (Auto) (2-4) % Baso % (Auto) (0-2) % Neut # (Auto) (6008-6071) /uL Lymph # (Auto) (6038-7775) /uL [place] # (Auto) (0-900) /uL Eos # (Auto) (0-450) /uL Baso # (Auto) (0-100) /uL PT (10.1-12.7) SECONDS INR (0.9-1.3) APTT (26-36) SECONDS Sodium (137-145) mmol/L Potassium (3.4-5.1) mmol/L Chloride (98-107) mmol/L Carbon Dioxide (22-32) mmol/L BUN (7-17) mg/dL Creatinine (0.52-1.04) mg/dL Estimated GFR (>60) mL/min BUN/Creatinine Ratio (6-22) Glucose (80-110) mg/dL Calcium (8.4-10.2) mg/dL Magnesium (1.6-2.3) mg/dL Total Bilirubin (0.2-1.3) mg/dL AST (14-36) IU/L ALT (<35) IU/L Alkaline Phosphatase (38-126) U/L Total Creatine Kinase (30-135) U/L CK-MB (CK-2) CK-MB (CK-2) Rel Index Troponin I < 0.012 (0.01-0.034) ng/mL NT-Pro-B Natriuret Pep 126 (<450) pg/mL Total Protein (6.3-8.2) g/dL Albumin (3.5-5.0) g/dL Globulin (1.7-4.1) g/dL Albumin/Globulin Ratio (1.0-2.8) Lipase (23-300) U/L Imaging Data Chest x-ray: Radiologist's Impression: Close Chest X-Ray (Signed) Mandy Ortega - 11/23/22 Mammogram Screening (Signed) Nubia Camargo - 09/12/[address] (Signed) Jefe Staley - 04/29/[address] (Signed) Jeef Staley - 04/29/22 Radiology Report (Cancelled) Michael Valero - 03/23/22 Myocardial Perfusion Scan Nuc Med (Signed) Michael Valero - 03/23/22 Mammogram Screening (Signed) Charles Fletcher - 09/07/21 Abdomen/Pelvis CT (Signed) Mandy Ortega - 06/07/[address] (Signed) Mandy Ortega - 03/15/21 Abdomen Ultrasound (Signed) Jefe Staley - 03/15/21 Mammogram Screening (Signed) Call,Ranjit - 09/05/20 Knee X-Ray (Signed) Antonio Yo - 09/03/20 Hip X-Ray (Signed) Antonio Yo - 09/03/20 Pelvis MRI (Signed) Ishmael Villalta - 06/01/20 Knee X-Ray (Signed) Steven Joyce - 05/02/20 Abdomen/Pelvis CT (Signed) Nirav Valladares - 05/02/20 Head/Neck CTA (Signed) Jasmin Dillard - 01/10/[address] (Signed) Charles Fletcher - 01/10/20 Bone Densitometry 11/25/19 Mammogram, Additional Views (Signed) Samson Verdugo - 07/31/19 Breast Ultrasound (Signed) Samson Verdugo - 07/31/19 Mammogram Screening (Signed) Call,Ranjit - 07/16/[address] (Signed) Jefe Staley - 03/06/19 Telemetry Strips 03/04/[address] (Signed) Steven Joyce - 11/03/18 Vascular Ultrasound (Signed) Mandy Ortega - 09/02/18 Hip X-Ray (Signed) Steven Joyce - 08/06/18 Mammogram Screening (Signed) Ishmael Villalta - 07/04/18 Launch?Image [address] [address] XRay Report Signed Patient: Thania Baptiste MR#: [id number] : 1940 Acct:[id number] Age/Sex: 82 / F Date of Service: 11/23/22 Loc: ED Accession Number: [id number] ?? Procedure: XR chest 1V Ordering Provider: Roslyn Wagner D.O. PROCEDURE:? XR CHEST 1V ? INDICATIONS:? chest pain ? TECHNIQUE:? One view of the chest was acquired.? ? COMPARISON:? [facility], , CHEST 2 VIEW, 05/18/2016, 15:00. ? FINDINGS:? ? Surgical changes and devices:? None.? ? Lungs and pleura:? Lungs are clear.? No pleural effusions or pneumothorax.? ? Mediastinum:? Mediastinal contours appear normal.? Heart size is normal.? ? Bones and chest wall:? No suspicious bony lesions.? Overlying soft tissues appear unremarkable.? ? IMPRESSION:? No acute pulmonary process. ? ? Dictated by: Mandy Ortega M.D. on 11/23/2022 at 9:08 ? ? Approved by: Mandy Ortega M.D. on 11/23/2022 at 9:10?? ECG Data Attestation: I personally reviewed and interpreted this ECG as follows: Prior ECG tracings: available for review Interpretation: Sinus rhythm rate of 79 NH 152 QRS of [address]TC [address] No acute ST elevation. Patient has prior from 01/10/2020 no clear elevation, ? J point elevation V3 EKG 2., sinus rhythm it was done new 7, NH 160s 2, QRS of 94 and QTC of 452. Acute ST changes appreciated. Patient's EKG appears similar with no dynamic changes. MDM Narrative Medical decision making narrative: This is an 82-year-old female who presents with complaint of chest pain at onset was at 3:30 a.m. this morning squeezing sensation 6/10 pretty constant persistent since onset some sweatiness initially. Patient did try it at home lorazepam without improvement. Workup and EKG shows clear acute change to CBC, coags, CMP shows AST of 37- troponin, negative BNP. Chest x-ray is negative as well. Patient's chart review shows a myocardial perfusion nuclear med on 03/23/2022 with normal perfusion study with good exercise tolerance overall low risk. Patient states minimal change with nitro and aspirin. Her blood pressure did improve. Patient and I discussed repeat troponin and EKG shows no acute change, no elevation in troponin, no dynamic changes on EKG. She notes she actually stopped her aspirin awhile ago because it upsets her stomach, was given Maalox and Protonix to see if this had an improvement. Discussed chest pain observation versus discharge home. We did discuss so far patient's workup has not shown a cardiac cause but she does have risk factors. After discussion patient elects to return home rather than stay for observation. She did have some improvement Maalox and Protonix. Discharge Plan Departure Patient Disposition: Home Clinical Impression: Chest pain Instructions: DI for Chest Pain Activity Restrictions/Additional Instructions: Follow-up with your physician on Saturday for recheck. Your workup today did not show a clear cardiac cause but does not completely rule out cardiac reasons. Talk with your physician about having repeat stress testing or further workup. You may continue your home medications as prescribed. Please return for new or worsening symptoms, new or worsening chest pain, shortness of breath, diaphoresis or sweatiness, lightheadedness or passing out, new swelling in her extremities or other new or concerning changes. Prescriptions: No Action omeprazole 20 mg capsule,delayed release(DR/EC) 20 mg PO BID PRN (Reason: Acid Reflux) atorvastatin 20 mg tablet 20 mg PO BEDTIME quetiapine [Seroquel] 50 MG tablet 50 mg PO BID Qty: 0 clotrimazole 1 % cream 1 gm Topical BIDP PRN (Reason: dermatitis) Qty: 0 zolpidem [Ambien] 10 mg Tablet 10 mg PO BEDTIME PRN (Reason: Insomnia) mirtazapine 30 mg tablet 30 mg PO BEDTIME gabapentin 300 mg capsule 1,800 mg PO BEDTIME Rx Instructions: 2 tabs in AM and 4 tabs at bedtime lorazepam 1 mg tablet 0.5 mg PO BID PRN (Reason: Anxiety) Centrum Silver 0.4-300-250 mg-mcg-mcg Tablet 1 tab PO DAILY Referrals: Yumiko Knutson PA-C [Primary Care Provider] - Stand Alone Forms: Patient Portal/API
--- NOTE | 2022-11-23 08:37 | DI.RAD.S_ITS ---
PROCEDURE: XR CHEST 1V INDICATIONS: chest pain TECHNIQUE: One view of the chest was acquired. COMPARISON: [facility], , CHEST 2 VIEW, 05/18/2016, 15:00. FINDINGS: Surgical changes and devices: None. Lungs and pleura: Lungs are clear. No pleural effusions or pneumothorax. Mediastinum: Mediastinal contours appear normal. Heart size is normal. Bones and chest wall: No suspicious bony lesions. Overlying soft tissues appear unremarkable. IMPRESSION: No acute pulmonary process. Dictated by: Mandy Ortega M.D. on 11/23/2022 at 9:08 Approved by: Mandy Ortega M.D. on 11/23/2022 at 9:10
[2022-11-23 08:51] LABS: Add Manual Diff / Slide Review NO; Basophils Absolute Auto 0 /uL (0-100); Basophils Percent Auto 0.5 % (0-2); Eosinophils Absolute Auto 100 /uL (0-450); Hematocrit 45.7 % (36-46); Hemoglobin 15.4 g/dL (12.0-16.0); Lymphocytes Absolute Auto 1000 /uL (1100-4500); Lymphocytes Percent Auto 14.2 % (25-40); Mean Corpuscular HGB Conc 33.7 % (30-36); Mean Corpuscular Hemoglobin 32.1 PG (26-34); Mean Corpuscular Volume 95.1 fL (80-100); Monocytes Absolute Auto 300 /uL (0-900); Monocytes Percent Auto 5.1 % (3-14); Neutrophils Absolute Auto 5400 /uL (1500-7000); Neutrophils Percent Auto 79.2 % (50-75); Platelet Count 186 X10^3/uL (150-400); Prothrombin Time 11.5 SECONDS (10.1-12.7); Red Blood Cell Count 4.81 X10^6/uL (4.0-5.2); Red Cell Distribution Width 13.5 % (11.6-14.8); White Blood Cell Count 6.8 X10^3/uL (4.5-11.0)
[2022-11-23] MEDS: ASPIRIN 81 MG CHEW TAB 324 MG PO (08:53)
[2022-11-23] MEDS: NITROGLYCERIN 0.4 MG SL TAB SL ×2 (08:53→09:04)
[2022-11-23 08:54] LABS: PTT Partial Thromboplastin Tim 31 SECONDS (26-36)
[2022-11-23 08:56] LABS: Alanine Aminotransferase 29 IU/L (<35); Albumin 4.7 g/dL (3.5-5.0); Albumin Globulin Ratio 1.3 (1.0-2.8); Alkaline Phosphatase 87 U/L (38-126); Aspartate Aminotransferase 37 IU/L (14-36); BUN Creatinine Ratio 18.4 (6-22); Bilirubin Total 0.7 mg/dL (0.2-1.3); Blood Urea Nitrogen 16 mg/dL (7-17); Calcium 9.4 mg/dL (8.4-10.2); Carbon Dioxide 29 mmol/L (22-32); Chloride 101 mmol/L (98-107); Creatine Kinase 104 U/L (30-135); Estimated Glomerular Filt Rate > 60 mL/min (>60); Globulin 3.6 g/dL (1.7-4.1); Glucose 101 mg/dL (80-110); HEMOLYSIS 18 (0-50); Lipase 207 U/L (23-300); Magnesium 2.2 mg/dL (1.6-2.3); Potassium 4.2 mmol/L (3.4-5.1); Sodium 138 mmol/L (137-145); Total Protein 8.3 g/dL (6.3-8.2)
[2022-11-23 09:05] LABS: NT-proBNP (BNP-Adult 18+) 126 pg/mL (<450)
[2022-11-23 09:08] LABS: Troponin I < 0.012 ng/mL (0.01-0.034)
[2022-11-23] MEDS: MAG HYDROX/ALUM/SIMETH 30 ML UDC PO (10:19)
[2022-11-23] MEDS: PANTOPRAZOLE 40 MG VIAL IV (10:19)
[2022-11-23 11:01] LABS: Troponin I < 0.012 ng/mL (0.01-0.034)
== END 2022-11-23 11:55 | disposition home or self-care (01) ==
PROVIDERS: Emergency Provider Emergency Medicine; PCP Physician Assistant
DX: R07.9 Chest pain, unspecified (principal)
CPT/HCPCS: 36415; 71045; 80053; 82550; 83690; 83735; 83880; 84484; 85025; 85610; 85730; 93005; 96374; 99284; C9113